=== PATIENT | male | born 1940 | race Caucasian/White ===

== ENCOUNTER 2020-02-29 12:22 | Inpatient (IN) ==
[2020-02-29 14:08] LABS: Basophils % 0.4 % (0.0-0.8); Eosinophils % 0.5 % (0.00-10.9); Hematocrit 35.5 VOL% (42.0-52.0); Hemoglobin 11.1 GM/DL (14.0-18.0); Immature Granulocytes % 0.4 %; Immature Granulocytes Absolute 0.03 #; Lymphocytes # 2.8 10*3/uL (1.4-4.0); Lymphocytes % 34.6 % (21.2-54.2); Mean Corpuscular HGB Conc 31.3 GM/DL (32-36); Mean Corpuscular Volume 90.8 FL (87-102); Mean Platelet Volume 10.2 FL (9.6-12.0); Monocytes % 10.2 % (1.7-12.7); Neutrophils % 53.9 % (38.7-73.9); Platelet Count 167 T/CUMM (130-400); Red Blood Count 3.91 MC/CUMM (3.8-5.5); Red Cell Distribution Width 16.3 % (9.3-17.3)
[2020-02-29] MEDS ORDERED: MORPHINE 4 MG/1 ML VIAL IV PRN (14:10)
[2020-02-29] MEDS ORDERED: SIMETHICONE CHEW 125 MG TABLET PO PRN (14:10)
[2020-02-29] MEDS ORDERED: hydrALAZINE 20 MG/1 ML VIAL IV PRN (14:10)
[2020-02-29] MEDS ORDERED: MAGNESIUM SULF RIDER 4 GM in PREMIX 1 EACH IV PRN (14:10)
[2020-02-29] MEDS ORDERED: MAGNESIUM SULF RIDER 2 GM in PREMIX 1 EACH IV PRN (14:10)
[2020-02-29] MEDS ORDERED: ALUMINUM/MAGNES/SIMETH MAX STR 30 ML UDCUP PO PRN (14:10)
[2020-02-29] MEDS ORDERED: BISACODYL 5 MG TABLET PO PRN (14:10)
[2020-02-29] MEDS ORDERED: LACTULOSE 20 GM/30 ML UDCUP PO PRN (14:10)
[2020-02-29] MEDS ORDERED: CALCIUM CARBONATE CHEW 500 MG TABLET PO PRN (14:10)
[2020-02-29] MEDS ORDERED: diphenhydrAMINE CAP 25 MG CAPSULE PO PRN (14:10)
[2020-02-29] MEDS ORDERED: POTASSIUM CHLORIDE 20 MEQ TABLET PO PRN (14:10)
[2020-02-29] MEDS ORDERED: ONDANSETRON 4 MG/2 ML VIAL IV PRN (14:10)
[2020-02-29 14:16] LABS: INR 3.4; Partial Thromboplastin Time 39.9 SECS (23.9-33.8)
[2020-02-29 14:18] LABS: Albumin 4.3 G/DL (3.4-5.0); Bilirubin,Total 0.5 MG/DL (0.2-1.0); Calcium 9.7 MG/DL (8.5-10.1); Osmolality,Calculated 284.5 MOS/KG (273-304); Total Protein 7.8 G/DL (6.4-8.3)
[2020-02-29] MEDS ORDERED: DEXTROSE 50% 25 GM/50 ML VIAL IV PRN (14:25)
[2020-02-29] MEDS ORDERED: GLUCAGON 1 MG VIAL IM PRN (14:25)
[2020-02-29] MEDS ORDERED: ENOXAPARIN 40 MG/0.4 ML SYRINGE SUBCUT SCH (15:30)
[2020-02-29 16:41] LABS: Troponin I < 0.015 NG/ML (0.00-0.045)
[2020-02-29] MEDS: INSULIN LISPRO 100 UNIT/ML SUBCUT SCH ×2 (17:33→21:33)
[2020-02-29 19:21] LABS: Troponin I < 0.015 NG/ML (0.00-0.045)
[2020-02-29] MEDS: LOSARTAN 50 MG TABLET PO SCH (21:33)
[2020-02-29] MEDS: gemfibroziL 600 MG TABLET PO SCH (21:45)
[2020-03-01 05:30] LABS: Basophils % 0.4 % (0.0-0.8); Eosinophils # 0.1 10*3/uL (0.0-0.87); Eosinophils % 1.2 % (0.00-10.9); Hematocrit 34.7 VOL% (42.0-52.0); Hemoglobin 10.8 GM/DL (14.0-18.0); Immature Granulocytes % 0.3 %; Immature Granulocytes Absolute 0.02 #; Lymphocytes # 2.6 10*3/uL (1.4-4.0); Lymphocytes % 37.4 % (21.2-54.2); Mean Corpuscular HGB Conc 31.1 GM/DL (32-36); Mean Corpuscular Volume 90.8 FL (87-102); Mean Platelet Volume 9.8 FL (9.6-12.0); Neutrophils % 50.7 % (38.7-73.9); Platelet Count 139 T/CUMM (130-400); Red Blood Count 3.82 MC/CUMM (3.8-5.5); Red Cell Distribution Width 16.4 % (9.3-17.3); White Blood Count 6.9 T/CUMM (4-12)
[2020-03-01 05:49] LABS: INR 3.5; PT Patient Result 35.3 SECS (9.8-11.9)
[2020-03-01 05:55] LABS: Calcium 9.1 MG/DL (8.5-10.1); Osmolality,Calculated 286.1 MOS/KG (273-304); Risk Ratio 5.78; Thyroid Stimulating Hormone 1.73 uIU/ml (0.358-3.74); VLDL CHOLESTEROL 35.6 MG/DL
[2020-03-01 05:57] LABS: Hypochromasia 1+
[2020-03-01 05:58] LABS: Microcytosis 1+; Ovalocytes Few; Spherocytes Slight
[2020-03-01 05:59] LABS: Anisocytosis 1+; Platelet Estimate Adequate; Polychromasia Slight
[2020-03-01] MEDS ORDERED: DIAZEPAM 5 MG TABLET PO ONE ×2 (06:28→12:00)
[2020-03-01] MEDS ORDERED: ceFAZolin 1,000 MG VIAL IRRIG ONE (06:28)
[2020-03-01] MEDS ORDERED: ceFAZolin 1,000 MG in SYRINGE 1 EACH IV ONE ×2 (06:28→12:00)
[2020-03-01] MEDS ORDERED: diphenhydrAMINE CAP 25 MG CAPSULE PO ONE ×2 (06:28→12:00)
[2020-03-01] MEDS ORDERED: SODIUM CHLORIDE 0.9% 1,000 ML IV SCH ×3 (06:30→14:00)
[2020-03-01] MEDS: INSULIN LISPRO 100 UNIT/ML SUBCUT SCH ×4 (08:32→20:40)
[2020-03-01] MEDS: PANTOPRAZOLE 40 MG TABLET PO SCH (08:45)
[2020-03-01] MEDS: gemfibroziL 600 MG TABLET PO SCH ×2 (08:45→20:27)
[2020-03-01] MEDS ORDERED: LIDOCAINE 1% 20 ML VIAL ONE (12:03)
[2020-03-01] MEDS ORDERED: HEPARIN/NACL 0.9% 2 UNITS/ML 0 ML IV ONE (12:03)
[2020-03-01] MEDS ORDERED: VERAPAMIL 5 MG/2 ML VIAL ONE (12:03)
[2020-03-01] MEDS ORDERED: NITROGLYCERIN DRIP 50 MG/250 ML BOTTLE IV ONE (12:03)
[2020-03-01] MEDS ORDERED: HEPARIN/NACL 0.9% 2 UNITS/ML 1,000 ML IV ONE (12:19)
[2020-03-01] MEDS ORDERED: fentaNYL 100 MCG/2 ML VIAL ONE (12:36)
[2020-03-01] MEDS ORDERED: MIDAZOLAM 2 MG/2 ML VIAL ONE (12:36)
[2020-03-01] MEDS ORDERED: ZALEPLON 5 MG CAPSULE PO PRN (13:37)
[2020-03-01] MEDS ORDERED: NITROGLYCERIN SL 0.4 MG TABLET SL PRN (13:37)
[2020-03-01] MEDS: ISOSORBIDE MONONITRATE 30 MG TABLET PO SCH (16:06)
[2020-03-01] MEDS: LOSARTAN 50 MG TABLET PO SCH (21:59)
[2020-03-02 05:40] LABS: Basophils % 0.3 % (0.0-0.8); Eosinophils # 0.1 10*3/uL (0.0-0.87); Eosinophils % 1.2 % (0.00-10.9); Hematocrit 34.6 VOL% (42.0-52.0); Hemoglobin 10.7 GM/DL (14.0-18.0); Immature Granulocytes % 0.1 %; Immature Granulocytes Absolute 0.01 #; Lymphocytes # 2.2 10*3/uL (1.4-4.0); Lymphocytes % 29.2 % (21.2-54.2); Mean Corpuscular HGB Conc 30.9 GM/DL (32-36); Mean Corpuscular Volume 91.1 FL (87-102); Mean Platelet Volume 10.4 FL (9.6-12.0); Monocytes % 11.5 % (1.7-12.7); Neutrophils % 57.7 % (38.7-73.9); Platelet Count 147 T/CUMM (130-400); Red Cell Distribution Width 16.5 % (9.3-17.3); White Blood Count 7.6 T/CUMM (4-12)
[2020-03-02 05:57] LABS: INR 2.5
[2020-03-02 05:58] LABS: PT Patient Result 25.7 SECS (9.8-11.9)
[2020-03-02 05:59] LABS: Osmolality,Calculated 286.1 MOS/KG (273-304)
[2020-03-02] MEDS: ASPIRIN EC 81 MG TABLET PO SCH (08:45)
[2020-03-02] MEDS: ISOSORBIDE MONONITRATE 30 MG TABLET PO SCH ×2 (08:45→08:46)
[2020-03-02] MEDS: gemfibroziL 600 MG TABLET PO SCH ×2 (08:45→21:45)
[2020-03-02] MEDS: INSULIN LISPRO 100 UNIT/ML SUBCUT SCH ×4 (08:46→21:38)
[2020-03-02] MEDS: PANTOPRAZOLE 40 MG TABLET PO SCH (08:46)
[2020-03-02] MEDS: ASCORBIC ACID 500 MG TABLET PO SCH ×2 (10:08→21:45)
[2020-03-02] MEDS ORDERED: DEXTROSE 50% 25 GM/50 ML VIAL IV PRN (13:29)
[2020-03-02] MEDS ORDERED: GLUCAGON 1 MG VIAL IM PRN (13:29)
[2020-03-02] MEDS: ACETAMINOPHEN 325 MG TABLET PO PRN ×2 (17:11→21:46)
[2020-03-02] MEDS: LOSARTAN 50 MG TABLET PO SCH (21:45)
[2020-03-03 05:38] LABS: Basophils % 0.4 % (0.0-0.8); Eosinophils # 0.1 10*3/uL (0.0-0.87); Eosinophils % 1.5 % (0.00-10.9); Hematocrit 32.9 VOL% (42.0-52.0); Hemoglobin 10.1 GM/DL (14.0-18.0); Immature Granulocytes % 0.3 %; Immature Granulocytes Absolute 0.02 #; Lymphocytes # 2.7 10*3/uL (1.4-4.0); Lymphocytes % 37.9 % (21.2-54.2); Mean Corpuscular HGB Conc 30.7 GM/DL (32-36); Mean Corpuscular Volume 91.4 FL (87-102); Mean Platelet Volume 10.6 FL (9.6-12.0); Monocytes % 10.3 % (1.7-12.7); Neutrophils % 49.6 % (38.7-73.9); Platelet Count 132 T/CUMM (130-400); Red Cell Distribution Width 16.5 % (9.3-17.3); White Blood Count 7.2 T/CUMM (4-12)
[2020-03-03 05:52] LABS: INR 1.7
[2020-03-03 06:07] LABS: Albumin 3.7 G/DL (3.4-5.0); Bilirubin,Total 1.7 MG/DL (0.2-1.0); Calcium 9.2 MG/DL (8.5-10.1); Osmolality,Calculated 287.1 MOS/KG (273-304); Total Protein 6.9 G/DL (6.4-8.3)
[2020-03-03 06:08] LABS: Calcium 9.1 MG/DL (8.5-10.1); Osmolality,Calculated 288.1 MOS/KG (273-304)
[2020-03-03] MEDS: INSULIN LISPRO 100 UNIT/ML SUBCUT SCH ×4 (06:56→20:03)
[2020-03-03] MEDS: ASCORBIC ACID 500 MG TABLET PO SCH ×2 (09:18→20:36)
[2020-03-03] MEDS: ASPIRIN EC 81 MG TABLET PO SCH (09:18)
[2020-03-03] MEDS: gemfibroziL 600 MG TABLET PO SCH ×2 (09:18→20:36)
[2020-03-03] MEDS: ISOSORBIDE MONONITRATE 30 MG TABLET PO SCH ×2 (09:18→10:37)
[2020-03-03] MEDS: PANTOPRAZOLE 40 MG TABLET PO SCH (09:18)
[2020-03-03 09:23] LABS: ABG Base Excess -5.6 MMOL/L (-2.5-2.5); ABG HCO3 19.8 MMOL/L (20-26); ABG Oxygen Saturation 93.9 % (95-100); ABG PCO2 28.2 MM HG (35-48); ABG PH 7.412 (7.35-7.45); ABG PO2 70.8 MM HG (80-95); ABG TCO2 16.2 MMOL/L (23-27); Allen Test Positive; Pt O2 Delivery Device Room Air
[2020-03-03] MEDS ORDERED: SODIUM CHLORIDE 0.9% 1,000 ML IV SCH (14:00)
[2020-03-03] MEDS: CHLORHEXIDINE 4% SOLN 118 ML BOTTLE TOP SCH ×2 (15:00→20:37)
[2020-03-03] MEDS: ACETAMINOPHEN 325 MG TABLET PO PRN (20:35)
[2020-03-03] MEDS: LOSARTAN 50 MG TABLET PO SCH (20:36)
[2020-03-03] MEDS: CHLORHEXIDINE 0.12% ORAL RINSE 60 ML BOTTLE SWISH/SPIT SCH (20:36)
[2020-03-04] MEDS ORDERED: PAPAVERINE 60 MG/2 ML VIAL ONE (04:20)
[2020-03-04] MEDS ORDERED: VANCOMYCIN 500 MG VIAL ONE (04:21)
[2020-03-04] MEDS ORDERED: VANCOMYCIN 1,000 MG VIAL ONE (04:21)
[2020-03-04] MEDS ORDERED: CEFUROXIME INJ 1,500 MG in SYRINGE 1 EACH IV ONE (05:00)
[2020-03-04] MEDS ORDERED: DIAZEPAM 5 MG TABLET PO ONE (06:00)
[2020-03-04] MEDS ORDERED: FAMOTIDINE 20 MG TABLET PO ONE (06:00)
[2020-03-04] MEDS ORDERED: MINERAL OIL/PETROLATUM OPH OINT 3.5 GM TUBE ONE (06:14)
[2020-03-04] MEDS ORDERED: MIDAZOLAM 10 MG/2 ML VIAL ONE ×2 (06:14)
[2020-03-04] MEDS ORDERED: diphenhydrAMINE 50 MG/1 ML VIAL ONE (06:14)
[2020-03-04] MEDS ORDERED: SUFentanil 250 MCG/5 ML AMP ONE (06:14)
[2020-03-04] MEDS ORDERED: FAMOTIDINE 20 MG/2 ML VIAL IV ONE (06:15)
[2020-03-04 06:37] LABS: Basophils % 0.4 % (0.0-0.8); Eosinophils # 0.1 10*3/uL (0.0-0.87); Eosinophils % 1.1 % (0.00-10.9); Hematocrit 31.8 VOL% (42.0-52.0); Hemoglobin 9.9 GM/DL (14.0-18.0); Immature Granulocytes % 0.4 %; Immature Granulocytes Absolute 0.03 #; Lymphocytes # 2.6 10*3/uL (1.4-4.0); Lymphocytes % 32.4 % (21.2-54.2); Mean Corpuscular HGB Conc 31.1 GM/DL (32-36); Mean Corpuscular Volume 91.9 FL (87-102); Mean Platelet Volume 10.2 FL (9.6-12.0); Monocytes % 11.1 % (1.7-12.7); NRBC # 0.02 10*3/uL; Neutrophils % 54.6 % (38.7-73.9); Platelet Count 132 T/CUMM (130-400); Red Blood Count 3.46 MC/CUMM (3.8-5.5); Red Cell Distribution Width 16.6 % (9.3-17.3); White Blood Count 8.1 T/CUMM (4-12)
[2020-03-04 06:43] LABS: INR 1.5; PT Patient Result 15.8 SECS (9.8-11.9)
[2020-03-04 07:02] LABS: Calcium 9.1 MG/DL (8.5-10.1); Osmolality,Calculated 291.1 MOS/KG (273-304)
[2020-03-04 07:26] LABS: Anisocytosis 1+; Band Neutrophils 3 % (0-10); Eosinophils 1 % (0-10); Lymphocytes 33 % (20-55); Macrocytosis 1+; Platelet Estimate Decreased; Polychromasia 2+; Segmented Neutrophils 50 % (50-85); Total Cells Counted 100
[2020-03-04 07:27] LABS: Ovalocytes Few
[2020-03-04] MEDS ORDERED: PHENYLEPHRINE DRIP 40 MG/250 ML PREMIX IV ONE (07:28)
[2020-03-04 07:57] LABS: ABG Base Excess -6.9 MMOL/L (-2.5-2.5); ABG HCO3 18.8 MMOL/L (20-26); ABG PH 7.336 (7.35-7.45); ABG TCO2 16.7 MMOL/L (23-27); Glucose Heart Surgery 122 MG/DL (74-106); Hemoglobin Heart Surgery 9.4 G/DL (14.0-18.0); Ionized Calcium Arterial 1.27 MMOL/L (1.21-1.46); PH Patient Temp Arterial 7.336; Patient Temperature 37 CELCIUS; Potassium Heart/CVR 3.9 MMOL/L (3.5-5.1); Sodium Heart/CVR 143 MMOL/L (135-145)
[2020-03-04 08:09] LABS: Apearance,Urine CLEAR (Clear); Bacteria,Urine Occasional /HPF (Few); Bilirubin,Urine Negative (Negative); Blood, Urine Negative (Negative); Glucose,Urine (UA) Negative (Negative); Hyaline Casts,Urine 5 /LPF (0-3); Ketones,Urine Negative (Negative); Nitrite,Urine Negative (Negative); Protein,Urine 30 MG/DL; RBC,Urine 2 /HPF (0-4); Squamous Epithelial Cell,Urine Occasional /HPF (0-10); Urine Color Yellow (Yellow); Urine Urobilinogen < 2.0 EU/DL (0.2-1.0); WBC,Urine 2 /HPF (0-6)
[2020-03-04 09:31] LABS: Hematocrit Heart Surgery 19.9 PERCENT (42-52); PCO2 Patient Temp Venous 34.4 MM HG; PH Patient Temp Venous 7.34; PO2 Patient Temp Venous 37.9 MM HG; Potassium Heart/CVR 4.5 MMOL/L (3.5-5.1); VBG Base Excess -6.4 MEQ/L (0-4); VBG HCO3 18.9 MEQ/L (24-28); VBG Oxygen Saturation 73.6 %; VBG PCO2 39.8 MMHG (41-51); VBG PH 7.299; VBG PO2 46.5 MMHG (17-40)
[2020-03-04 09:34] LABS: Hemoglobin Heart Surgery 6.3 G/DL (14.0-18.0)
[2020-03-04 10:01] LABS: Hematocrit Heart Surgery 19.5 PERCENT (42-52); PCO2 Patient Temp Venous 34.3 MM HG; PH Patient Temp Venous 7.393; PO2 Patient Temp Venous 34.6 MM HG; Potassium Heart/CVR 4.7 MMOL/L (3.5-5.1); VBG Base Excess -3.4 MEQ/L (0-4); VBG HCO3 21.3 MEQ/L (24-28); VBG Oxygen Saturation 71.1 %; VBG PCO2 39.6 MMHG (41-51); VBG PH 7.351; VBG PO2 42.5 MMHG (17-40)
[2020-03-04 10:02] LABS: Hemoglobin Heart Surgery 6.2 G/DL (14.0-18.0)
[2020-03-04] MEDS ORDERED: THROMBIN TOPICAL (RECOMBINANT) 5,000 UNIT VIAL TOP ONE (10:35)
[2020-03-04 10:36] LABS: ABG Base Excess -3.7 MMOL/L (-2.5-2.5); ABG HCO3 21.3 MMOL/L (20-26); ABG PCO2 40.4 MM HG (35-48); ABG PH 7.339 (7.35-7.45); ABG TCO2 20.4 MMOL/L (23-27); Glucose Heart Surgery 236 MG/DL (74-106); Hematocrit Heart Surgery 25.3 PERCENT (42-52); Hemoglobin Heart Surgery 8.1 G/DL (14.0-18.0); Ionized Calcium Arterial 1.23 MMOL/L (1.21-1.46); PCO2 Patient Temp Arterial 40.4 MMHG; PH Patient Temp Arterial 7.339; Patient Temperature 37 CELCIUS; Potassium Heart/CVR 4.2 MMOL/L (3.5-5.1); Sodium Heart/CVR 139 MMOL/L (135-145)
[2020-03-04] MEDS ORDERED: ALBUMIN 25% 25 GM/100 ML VIAL IV ONE (10:42)
[2020-03-04] MEDS ORDERED: SODIUM BICARBONATE 50 MEQ/50 ML VIAL IV ONE (10:43)
[2020-03-04] MEDS ORDERED: DEXTROSE 5% KCL 20 MEQ 20 MEQ/1,000 ML BAG IV ONE (10:43)
[2020-03-04] MEDS ORDERED: LIDOCAINE 2% 5 ML VIAL ONE ×2 (10:43→11:39)
[2020-03-04] MEDS ORDERED: PROTAMINE SULFATE 250 MG/25 ML VIAL IV ONE (10:43)
[2020-03-04] MEDS ORDERED: MANNITOL 100 GM/500 ML BAG IV ONE (10:43)
[2020-03-04] MEDS ORDERED: MAGNESIUM SULFATE 5 GM/10 ML VIAL IV ONE (10:43)
[2020-03-04] MEDS ORDERED: HEPARIN 10,000 UNIT/10 ML VIAL ONE (10:44)
[2020-03-04] MEDS ORDERED: methylPREDNISolone SOD SUC 1,000 MG/8 ML VIAL ONE (10:44)
[2020-03-04] MEDS ORDERED: FUROSEMIDE 20 MG/2 ML VIAL ONE (10:44)
[2020-03-04] MEDS ORDERED: ONDANSETRON 4 MG/2 ML VIAL IV PRN (11:33)
[2020-03-04] MEDS ORDERED: VECURONIUM 10 MG VIAL IV PRN ×2 (11:33)
[2020-03-04] MEDS ORDERED: DEXTROSE 50% 25 GM/50 ML VIAL IV PRN ×2 (11:33)
[2020-03-04] MEDS ORDERED: MIDAZOLAM 10 MG/2 ML VIAL IV PRN (11:33)
[2020-03-04] MEDS ORDERED: CALCIUM CHLORIDE 1,000 MG/10 ML SYRINGE IV PRN (11:33)
[2020-03-04] MEDS ORDERED: MORPHINE 10 MG/1 ML VIAL IV PRN (11:33)
[2020-03-04] MEDS ORDERED: PHENYLEPHRINE DRIP 40 MG/250 ML PREMIX IV PRN (11:33)
[2020-03-04] MEDS ORDERED: ACETAMINOPHEN 650 MG SUPP RECTAL PRN (11:33)
[2020-03-04] MEDS ORDERED: INSULIN REGULAR DRIP 100 ML IV SCH (11:33)
[2020-03-04] MEDS ORDERED: SODIUM CHLORIDE 0.45% 1,000 ML IV SCH ×2 (11:33)
[2020-03-04] MEDS ORDERED: CHLORHEXIDINE 4% SOLN 118 ML BOTTLE TOP PRN (11:33)
[2020-03-04] MEDS ORDERED: MORPHINE 4 MG/1 ML VIAL IV PRN (11:33)
[2020-03-04] MEDS ORDERED: MIDAZOLAM 2 MG/2 ML VIAL IV PRN (11:33)
[2020-03-04] MEDS ORDERED: INSULIN REGULAR 100 UNIT/ML IV PRN (11:33)
[2020-03-04] MEDS ORDERED: MAGNESIUM SULF RIDER 2 GM in PREMIX 1 EACH IV PRN (11:33)
[2020-03-04] MEDS ORDERED: LACTATED RINGERS 250 ML IV PRN (11:33)
[2020-03-04] MEDS ORDERED: INSULIN REGULAR 100 UNIT/ML IV ONE (11:33)
[2020-03-04] MEDS ORDERED: NITROPRUSSIDE 100 MG in DEXTROSE 5% 250 ML IV PRN (11:33)
[2020-03-04] MEDS ORDERED: MAGNESIUM SULF RIDER 4 GM in PREMIX 1 EACH IV PRN (11:33)
[2020-03-04] MEDS ORDERED: ALBUMIN 5% 12.5 GM in PREMIX 1 EACH IV PRN (11:33)
[2020-03-04] MEDS ORDERED: PHENYLEPHRINE DRIP 20 MG/250 ML PREMIX IV ONE (11:39)
[2020-03-04] MEDS ORDERED: HEPARIN/NACL 0.9% 2 UNITS/ML 500 ML IV ONE (11:39)
[2020-03-04] MEDS ORDERED: ETOMIDATE 40 MG/20 ML VIAL IV ONE (11:40)
[2020-03-04] MEDS ORDERED: ePHEDrine 50 MG/ML VIAL ONE (11:40)
[2020-03-04] MEDS ORDERED: SEVOFLURANE 1 UNIT/15 MINUTE INH ONE (11:40)
[2020-03-04] MEDS ORDERED: NITROGLYCERIN DRIP 50 MG/250 ML BOTTLE IV ONE (11:41)
[2020-03-04] MEDS ORDERED: AMINOCAPROIC ACID 5,000 MG/20 ML VIAL ONE (11:41)
[2020-03-04] MEDS ORDERED: SODIUM CHLORIDE 0.9% 250 ML IV ONE (11:41)
[2020-03-04] MEDS ORDERED: SODIUM CHLORIDE 0.9% 2,000 ML IV ONE (11:41)
[2020-03-04] MEDS ORDERED: LACTATED RINGERS 1,000 ML IV ONE (11:41)
[2020-03-04] MEDS ORDERED: SODIUM CHLORIDE 0.9% 100 ML IV ONE (11:41)
[2020-03-04 11:57] LABS: ABG Base Excess -1.6 MMOL/L (-2.5-2.5); ABG Oxygen Saturation 97.9 % (95-100); ABG PCO2 39.7 MM HG (35-48); ABG PH 7.377 (7.35-7.45); ABG PO2 98.3 MM HG (80-95); ABG TCO2 21.1 MMOL/L (23-27); Glucose Heart Surgery 210 MG/DL (74-106); Hematocrit Heart Surgery 32.9 PERCENT (42-52); Hemoglobin Heart Surgery 10.7 G/DL (14.0-18.0); Potassium Heart/CVR 3.6 MMOL/L (3.5-5.1)
[2020-03-04 12:01] LABS: Basophils % 0.3 % (0.0-0.8); Eosinophils % 0.3 % (0.00-10.9); Hematocrit 30.4 VOL% (42.0-52.0); Hemoglobin 9.8 GM/DL (14.0-18.0); Immature Granulocytes % 0.8 %; Immature Granulocytes Absolute 0.06 #; Lymphocytes # 1.2 10*3/uL (1.4-4.0); Lymphocytes % 16.6 % (21.2-54.2); Mean Corpuscular HGB Conc 32.2 GM/DL (32-36); Mean Corpuscular Volume 89.1 FL (87-102); Mean Platelet Volume 10.3 FL (9.6-12.0); Monocytes % 7.3 % (1.7-12.7); Neutrophils % 74.7 % (38.7-73.9); Platelet Count 102 T/CUMM (130-400); Red Blood Count 3.41 MC/CUMM (3.8-5.5); White Blood Count 7.4 T/CUMM (4-12)
[2020-03-04] MEDS: POTASSIUM CHLORIDE RIDER 20 MEQ in PREMIX 1 EACH IV PRN ×3 (12:06→21:15)
[2020-03-04 12:10] LABS: INR 1.6; PT Patient Result 16.3 SECS (9.8-11.9); Partial Thromboplastin Time 32.3 SECS (23.9-33.8)
[2020-03-04] MEDS: LACTATED RINGERS 1,000 ML IV PRN ×3 (12:30→16:02)
[2020-03-04 12:41] LABS: Albumin 3.4 G/DL (3.4-5.0); Bilirubin,Total 1.5 MG/DL (0.2-1.0); Calcium 8.3 MG/DL (8.5-10.1); Total Protein 5.7 G/DL (6.4-8.3)
[2020-03-04] MEDS ORDERED: NITROPRUSSIDE 50 MG/2 ML VIAL ONE (12:41)
[2020-03-04 12:50] LABS: Anisocytosis 1+; Platelet Estimate Adequate; Polychromasia Slight
[2020-03-04 12:51] LABS: Poikilocytosis Slight
[2020-03-04 14:08] LABS: ABG Base Excess -1.2 MMOL/L (-2.5-2.5); ABG HCO3 23.4 MMOL/L (20-26); ABG Oxygen Saturation 99.3 % (95-100); ABG PCO2 37.1 MM HG (35-48); ABG PH 7.404 (7.35-7.45); ABG TCO2 21.2 MMOL/L (23-27); Glucose Heart Surgery 205 MG/DL (74-106); Hematocrit Heart Surgery 28.9 PERCENT (42-52); Hemoglobin Heart Surgery 9.3 G/DL (14.0-18.0); Potassium Heart/CVR 3.9 MMOL/L (3.5-5.1)
[2020-03-04] MEDS: POTASSIUM CHLORIDE RIDER 10 MEQ in PREMIX 1 EACH IV PRN (14:51)
[2020-03-04 16:04] LABS: CKMB % 4.4 %
[2020-03-04 16:08] LABS: Troponin I 1.88 NG/ML (0.00-0.045)
[2020-03-04 16:09] LABS: ABG Base Excess -1.6 MMOL/L (-2.5-2.5); ABG HCO3 23.1 MMOL/L (20-26); ABG PH 7.391 (7.35-7.45); ABG TCO2 20.9 MMOL/L (23-27); Glucose Heart Surgery 187 MG/DL (74-106); Hematocrit Heart Surgery 31.5 PERCENT (42-52); Hemoglobin Heart Surgery 10.2 G/DL (14.0-18.0)
[2020-03-04] MEDS: CEFUROXIME INJ 1,500 MG in SYRINGE 1 EACH IV SCH (18:22)
[2020-03-04] MEDS: INSULIN LISPRO 100 UNIT/ML SUBCUT SCH (18:55)
[2020-03-04] MEDS: CHLORHEXIDINE 0.12% ORAL RINSE 60 ML BOTTLE SWISH/SPIT SCH ×2 (18:56→21:18)
[2020-03-04] MEDS: gemfibroziL 600 MG TABLET PO SCH (18:56)
[2020-03-04] MEDS: ISOSORBIDE MONONITRATE 30 MG TABLET PO SCH (18:56)
[2020-03-04] MEDS: ASPIRIN EC 81 MG TABLET PO SCH (18:56)
[2020-03-04] MEDS: CHLORHEXIDINE 4% SOLN 118 ML BOTTLE TOP SCH (18:56)
[2020-03-04] MEDS: PANTOPRAZOLE 40 MG TABLET PO SCH (18:56)
[2020-03-04] MEDS: ASCORBIC ACID 500 MG TABLET PO SCH (18:57)
[2020-03-04 19:20] LABS: ABG Base Excess -1.3 MMOL/L (-2.5-2.5); ABG HCO3 23.3 MMOL/L (20-26); ABG Oxygen Saturation 95.6 % (95-100); ABG PCO2 37.3 MM HG (35-48); ABG PH 7.401 (7.35-7.45); ABG PO2 77.4 MM HG (80-95); Glucose Heart Surgery 128 MG/DL (74-106); Hematocrit Heart Surgery 31.3 PERCENT (42-52); Hemoglobin Heart Surgery 10.1 G/DL (14.0-18.0); Potassium Heart/CVR 3.8 MMOL/L (3.5-5.1)
[2020-03-04 19:53] LABS: CKMB % 4.1 %
[2020-03-04 20:11] LABS: Troponin I 3.16 NG/ML (0.00-0.045)
[2020-03-04 21:08] LABS: ABG Base Excess -0.9 MMOL/L (-2.5-2.5); ABG HCO3 23.7 MMOL/L (20-26); ABG Oxygen Saturation 95.8 % (95-100); ABG PH 7.418 (7.35-7.45); ABG PO2 77.6 MM HG (80-95); ABG TCO2 21.1 MMOL/L (23-27); Glucose Heart Surgery 117 MG/DL (74-106); Hematocrit Heart Surgery 31.5 PERCENT (42-52); Hemoglobin Heart Surgery 10.2 G/DL (14.0-18.0); Potassium Heart/CVR 3.8 MMOL/L (3.5-5.1)
[2020-03-04] MEDS ORDERED: FUROSEMIDE 40 MG/4 ML VIAL IV ONE (22:03)
[2020-03-04 23:19] LABS: ABG Base Excess -1.2 MMOL/L (-2.5-2.5); ABG HCO3 23.3 MMOL/L (20-26); ABG Oxygen Saturation 92.6 % (95-100); ABG PH 7.412 (7.35-7.45); ABG PO2 65.6 MM HG (80-95); ABG TCO2 20.9 MMOL/L (23-27); Glucose Heart Surgery 145 MG/DL (74-106); Hematocrit Heart Surgery 31.1 PERCENT (42-52); Hemoglobin Heart Surgery 10.1 G/DL (14.0-18.0); Potassium Heart/CVR 3.9 MMOL/L (3.5-5.1)
[2020-03-05 00:23] LABS: ABG Base Excess -2.1 MMOL/L (-2.5-2.5); ABG HCO3 21.6 MMOL/L (20-26); ABG Oxygen Saturation 95.7 % (95-100); ABG PH 7.433 (7.35-7.45); ABG PO2 84.2 MM HG (80-95); ABG TCO2 22.6 MMOL/L (23-27); Glucose Heart Surgery 134 MG/DL (74-106); Hemoglobin Heart Surgery 10.9 G/DL (14.0-18.0); Potassium Heart/CVR 3.8 MMOL/L (3.5-5.1)
[2020-03-05] MEDS: POTASSIUM CHLORIDE RIDER 20 MEQ in PREMIX 1 EACH IV PRN (00:38)
[2020-03-05] MEDS: POTASSIUM CHLORIDE RIDER 10 MEQ in PREMIX 1 EACH IV PRN (01:07)
[2020-03-05 02:36] LABS: ABG Base Excess -1.4 MMOL/L (-2.5-2.5); ABG HCO3 23.2 MMOL/L (20-26); ABG Oxygen Saturation 97.4 % (95-100); ABG PCO2 35.4 MM HG (35-48); ABG PH 7.415 (7.35-7.45); ABG PO2 90.4 MM HG (80-95); ABG TCO2 20.6 MMOL/L (23-27); Glucose Heart Surgery 144 MG/DL (74-106); Hematocrit Heart Surgery 31.3 PERCENT (42-52); Hemoglobin Heart Surgery 10.1 G/DL (14.0-18.0); Potassium Heart/CVR 4.3 MMOL/L (3.5-5.1)
[2020-03-05 03:44] LABS: ABG Base Excess -1.5 MMOL/L (-2.5-2.5); ABG HCO3 23.1 MMOL/L (20-26); ABG Oxygen Saturation 95.3 % (95-100); ABG PCO2 35.1 MM HG (35-48); ABG PH 7.416 (7.35-7.45); ABG PO2 75.8 MM HG (80-95); ABG TCO2 20.6 MMOL/L (23-27); Glucose Heart Surgery 136 MG/DL (74-106); Hemoglobin Heart Surgery 9.7 G/DL (14.0-18.0); Potassium Heart/CVR 4.1 MMOL/L (3.5-5.1)
[2020-03-05 03:49] LABS: Basophils % 0.1 % (0.0-0.8); Hematocrit 30.9 VOL% (42.0-52.0); Hemoglobin 9.9 GM/DL (14.0-18.0); Immature Granulocytes % 0.4 %; Immature Granulocytes Absolute 0.05 #; Lymphocytes # 0.9 10*3/uL (1.4-4.0); Lymphocytes % 7.3 % (21.2-54.2); Mean Corpuscular Volume 89.6 FL (87-102); Mean Platelet Volume 10.6 FL (9.6-12.0); Monocytes % 5.3 % (1.7-12.7); NRBC # 0.02 10*3/uL; Neutrophils % 86.9 % (38.7-73.9); Platelet Count 105 T/CUMM (130-400); Red Blood Count 3.45 MC/CUMM (3.8-5.5); Red Cell Distribution Width 16.1 % (9.3-17.3); White Blood Count 12.3 T/CUMM (4-12)
[2020-03-05 04:08] LABS: Albumin 3.6 G/DL (3.4-5.0); Bilirubin,Direct 0.66 MG/DL (0.0-0.20); Bilirubin,Total 1.8 MG/DL (0.2-1.0); Calcium 8.6 MG/DL (8.5-10.1); Osmolality,Calculated 292.8 MOS/KG (273-304); Total Protein 6.6 G/DL (6.4-8.3)
[2020-03-05 04:09] LABS: CKMB % 3.1 %
[2020-03-05 04:11] LABS: Troponin I 2.67 NG/ML (0.00-0.045)
[2020-03-05 04:21] LABS: ABG Base Excess -1.1 MMOL/L (-2.5-2.5); ABG HCO3 23.5 MMOL/L (20-26); ABG Oxygen Saturation 95.3 % (95-100); ABG PCO2 35.7 MM HG (35-48); ABG PH 7.417 (7.35-7.45); ABG PO2 75.9 MM HG (80-95); Glucose Heart Surgery 137 MG/DL (74-106); Hematocrit Heart Surgery 30.6 PERCENT (42-52); Hemoglobin Heart Surgery 9.9 G/DL (14.0-18.0); Potassium Heart/CVR 4.1 MMOL/L (3.5-5.1)
[2020-03-05 05:30] LABS: ABG Base Excess -1.1 MMOL/L (-2.5-2.5); ABG HCO3 23.5 MMOL/L (20-26); ABG Oxygen Saturation 95.1 % (95-100); ABG PCO2 35.6 MM HG (35-48); ABG PH 7.418 (7.35-7.45); Glucose Heart Surgery 134 MG/DL (74-106); Hematocrit Heart Surgery 30.5 PERCENT (42-52); Hemoglobin Heart Surgery 9.9 G/DL (14.0-18.0); Potassium Heart/CVR 4.1 MMOL/L (3.5-5.1)
[2020-03-05] MEDS: CEFUROXIME INJ 1,500 MG in SYRINGE 1 EACH IV SCH (06:38)
[2020-03-05] MEDS ORDERED: FLUTICASONE 50 MCG NASAL SPRAY 16 GM BOTTLE BOTH NARES PRN (09:00)
[2020-03-05] MEDS ORDERED: MAGNESIUM HYDROXIDE SUSP 30 ML UDCUP PO PRN (09:30)
[2020-03-05] MEDS ORDERED: ONDANSETRON 4 MG/2 ML VIAL IV PRN (09:30)
[2020-03-05] MEDS ORDERED: oxyCODONE/ACETAMINOPHEN 5-325 MG TABLET PO PRN (09:30)
[2020-03-05] MEDS ORDERED: MAGNESIUM SULF RIDER 4 GM in PREMIX 1 EACH IV PRN (09:30)
[2020-03-05] MEDS ORDERED: ALUMINUM/MAGNES/SIMETH MAX STR 30 ML UDCUP PO PRN (09:30)
[2020-03-05] MEDS ORDERED: ZALEPLON 5 MG CAPSULE PO PRN (09:30)
[2020-03-05] MEDS ORDERED: GLUCAGON 1 MG VIAL IM PRN ×2 (09:30)
[2020-03-05] MEDS ORDERED: SODIUM CHLOR 0.45% KCL 20 MEQ 20 MEQ/1,000 ML BAG IV SCH (09:30)
[2020-03-05] MEDS ORDERED: MAGNESIUM SULF RIDER 2 GM in PREMIX 1 EACH IV PRN (09:30)
[2020-03-05] MEDS ORDERED: ACETAMINOPHEN 325 MG TABLET PO PRN (09:30)
[2020-03-05] MEDS ORDERED: DEXTROSE 50% 25 GM/50 ML VIAL IV PRN ×2 (09:30)
[2020-03-05] MEDS: CHOLECALCIFEROL 1,000 UNIT TABLET PO SCH (09:34)
[2020-03-05] MEDS: SERTRALINE 50 MG TABLET PO SCH (09:35)
[2020-03-05] MEDS: GLIMEPIRIDE 2 MG TABLET PO SCH (09:35)
[2020-03-05] MEDS: MEMANTINE 10 MG TABLET PO SCH ×2 (09:35→20:07)
[2020-03-05] MEDS: CYANOCOBALAMIN 500 MCG TABLET PO SCH (09:36)
[2020-03-05] MEDS: PANTOPRAZOLE 40 MG TABLET PO SCH ×2 (09:36→20:07)
[2020-03-05] MEDS: CHLORHEXIDINE 0.12% ORAL RINSE 60 ML BOTTLE SWISH/SPIT SCH ×2 (09:40→20:07)
[2020-03-05] MEDS: INSULIN REGULAR 100 UNIT/ML SUBCUT SCH ×3 (11:53→21:10)
[2020-03-05] MEDS ORDERED: WARFARIN 2.5 MG TABLET PO SCH (18:00)
[2020-03-05] MEDS ORDERED: CEFUROXIME INJ 1,500 MG in SYRINGE 1 EACH IV ONE (19:15)
[2020-03-05] MEDS: MORPHINE 4 MG/1 ML VIAL IV PRN ×3 (19:30→22:17)
[2020-03-05] MEDS ORDERED: SIMVASTATIN 20 MG TABLET ONE (19:38)
[2020-03-05] MEDS: SIMVASTATIN 20 MG TABLET PO SCH (20:07)
[2020-03-06] MEDS: MORPHINE 4 MG/1 ML VIAL IV PRN ×5 (00:01→22:30)
[2020-03-06 04:59] LABS: Basophils % 0.1 % (0.0-0.8); Hematocrit 29.6 VOL% (42.0-52.0); Hemoglobin 9.4 GM/DL (14.0-18.0); Immature Granulocytes % 0.6 %; Immature Granulocytes Absolute 0.08 #; Lymphocytes % 13.9 % (21.2-54.2); Mean Corpuscular HGB Conc 31.8 GM/DL (32-36); Mean Corpuscular Volume 90.2 FL (87-102); Mean Platelet Volume 10.9 FL (9.6-12.0); Monocytes % 9.1 % (1.7-12.7); NRBC # 0.05 10*3/uL; Neutrophils % 76.3 % (38.7-73.9); Platelet Count 103 T/CUMM (130-400); Red Blood Count 3.28 MC/CUMM (3.8-5.5); Red Cell Distribution Width 16.9 % (9.3-17.3); White Blood Count 14.5 T/CUMM (4-12)
[2020-03-06 05:06] LABS: INR 1.3; PT Patient Result 14.2 SECS (9.8-11.9)
[2020-03-06 05:20] LABS: Albumin 3.3 G/DL (3.4-5.0); Bilirubin,Direct 0.5 MG/DL (0.0-0.20); Bilirubin,Total 1.5 MG/DL (0.2-1.0); CKMB % 1.2 %; Calcium 8.7 MG/DL (8.5-10.1); Osmolality,Calculated 289.4 MOS/KG (273-304); Total Protein 6.2 G/DL (6.4-8.3)
[2020-03-06 05:59] LABS: Troponin I 1.54 NG/ML (0.00-0.045)
[2020-03-06] MEDS ORDERED: FUROSEMIDE 40 MG/4 ML VIAL IV ONE (06:00)
[2020-03-06] MEDS: FERROUS SULFATE 325 MG TABLET PO SCH (08:39)
[2020-03-06] MEDS: CYANOCOBALAMIN 500 MCG TABLET PO SCH (08:39)
[2020-03-06] MEDS: DOCUSATE SODIUM 100 MG CAPSULE PO SCH (08:39)
[2020-03-06] MEDS: SERTRALINE 50 MG TABLET PO SCH (08:39)
[2020-03-06] MEDS: GLIMEPIRIDE 2 MG TABLET PO SCH (08:39)
[2020-03-06] MEDS: ASPIRIN EC 325 MG TABLET PO SCH (08:40)
[2020-03-06] MEDS: CHOLECALCIFEROL 1,000 UNIT TABLET PO SCH (08:40)
[2020-03-06] MEDS: CHLORHEXIDINE 0.12% ORAL RINSE 60 ML BOTTLE SWISH/SPIT SCH ×2 (08:40→21:23)
[2020-03-06] MEDS: PANTOPRAZOLE 40 MG TABLET PO SCH ×2 (08:40→21:17)
[2020-03-06] MEDS: MEMANTINE 10 MG TABLET PO SCH ×2 (08:40→21:17)
[2020-03-06] MEDS: INSULIN REGULAR 100 UNIT/ML SUBCUT SCH ×4 (11:54→21:41)
[2020-03-06] MEDS ORDERED: WARFARIN 5 MG TABLET PO SCH (18:00)
[2020-03-06] MEDS: SIMVASTATIN 20 MG TABLET PO SCH (21:17)
[2020-03-07] MEDS: MORPHINE 4 MG/1 ML VIAL IV PRN ×5 (00:15→22:54)
[2020-03-07 05:51] LABS: Basophils % 0.2 % (0.0-0.8); Eosinophils # 0.1 10*3/uL (0.0-0.87); Eosinophils % 0.7 % (0.00-10.9); Hematocrit 29.5 VOL% (42.0-52.0); Hemoglobin 9.1 GM/DL (14.0-18.0); Immature Granulocytes % 0.6 %; Immature Granulocytes Absolute 0.07 #; Lymphocytes % 17.7 % (21.2-54.2); Mean Corpuscular HGB Conc 30.8 GM/DL (32-36); Mean Corpuscular Volume 92.2 FL (87-102); Mean Platelet Volume 10.9 FL (9.6-12.0); NRBC # 0.02 10*3/uL; Neutrophils % 71.8 % (38.7-73.9); Platelet Count 108 T/CUMM (130-400); Red Cell Distribution Width 16.6 % (9.3-17.3); White Blood Count 11.4 T/CUMM (4-12)
[2020-03-07 06:06] LABS: Calcium 8.4 MG/DL (8.5-10.1); Osmolality,Calculated 289.1 MOS/KG (273-304)
[2020-03-07 06:12] LABS: Alanine Aminotransferase 81 U/L (16-61); Albumin 3.2 G/DL (3.4-5.0); Alkaline Phosphatase 57 U/L (45-117); Aspartate Amino Transferase 104 U/L (0-37); Bilirubin,Indirect 1.4 MG/DL (0.0-1.0); Blood Urea Nitrogen 32 MG/DL (7-18); Calcium 8.8 MG/DL (8.5-10.1); Estimated Glom Filtration Rate 99 ML/MIN; Glucose 90 MG/DL (74-106); Osmolality,Calculated 289.1 MOS/KG (273-304); Total Protein 6.3 G/DL (6.4-8.3)
[2020-03-07 06:13] LABS: Troponin I 0.766 NG/ML (0.00-0.045)
[2020-03-07 06:18] LABS: INR 1.5; PT Patient Result 15.4 SECS (9.8-11.9)
[2020-03-07] MEDS: INSULIN REGULAR 100 UNIT/ML SUBCUT SCH ×4 (07:57→21:46)
[2020-03-07] MEDS ORDERED: DIAZEPAM 5 MG TABLET PO ONE (09:06)
[2020-03-07] MEDS ORDERED: diphenhydrAMINE CAP 25 MG CAPSULE PO ONE (09:06)
[2020-03-07] MEDS ORDERED: SODIUM CHLORIDE 0.9% 1,000 ML IV SCH (09:30)
[2020-03-07] MEDS: CHOLECALCIFEROL 1,000 UNIT TABLET PO SCH (09:41)
[2020-03-07] MEDS: CYANOCOBALAMIN 500 MCG TABLET PO SCH (09:42)
[2020-03-07] MEDS: ASPIRIN EC 325 MG TABLET PO SCH (09:42)
[2020-03-07] MEDS: POTASSIUM CHLORIDE 20 MEQ TABLET PO PRN ×2 (09:43→10:44)
[2020-03-07] MEDS: DOCUSATE SODIUM 100 MG CAPSULE PO SCH (09:43)
[2020-03-07] MEDS: MEMANTINE 10 MG TABLET PO SCH ×2 (09:44→20:12)
[2020-03-07] MEDS: GLIMEPIRIDE 2 MG TABLET PO SCH (09:44)
[2020-03-07] MEDS: FERROUS SULFATE 325 MG TABLET PO SCH (09:44)
[2020-03-07] MEDS: PANTOPRAZOLE 40 MG TABLET PO SCH ×2 (09:45→20:12)
[2020-03-07] MEDS: SERTRALINE 50 MG TABLET PO SCH (09:45)
[2020-03-07] MEDS: CHLORHEXIDINE 0.12% ORAL RINSE 60 ML BOTTLE SWISH/SPIT SCH ×2 (09:46→20:13)
[2020-03-07] MEDS: SIMVASTATIN 20 MG TABLET PO SCH (20:12)
[2020-03-08] MEDS: MORPHINE 4 MG/1 ML VIAL IV PRN ×6 (01:14→22:09)
[2020-03-08 03:02] LABS: Basophils % 0.3 % (0.0-0.8); Eosinophils # 0.1 10*3/uL (0.0-0.87); Eosinophils % 1.3 % (0.00-10.9); Hemoglobin 8.9 GM/DL (14.0-18.0); Immature Granulocytes % 0.4 %; Immature Granulocytes Absolute 0.04 #; Lymphocytes # 2.1 10*3/uL (1.4-4.0); Lymphocytes % 21.4 % (21.2-54.2); Mean Corpuscular HGB Conc 30.7 GM/DL (32-36); Mean Corpuscular Volume 92.7 FL (87-102); Mean Platelet Volume 10.1 FL (9.6-12.0); Monocytes % 9.8 % (1.7-12.7); NRBC # 0.05 10*3/uL; Neutrophils % 66.8 % (38.7-73.9); Platelet Count 113 T/CUMM (130-400); Red Blood Count 3.13 MC/CUMM (3.8-5.5); Red Cell Distribution Width 16.6 % (9.3-17.3); White Blood Count 9.7 T/CUMM (4-12)
[2020-03-08 03:11] LABS: INR 1.3; PT Patient Result 13.7 SECS (9.8-11.9)
[2020-03-08 03:20] LABS: Calcium 8.9 MG/DL (8.5-10.1); Osmolality,Calculated 286.3 MOS/KG (273-304)
[2020-03-08 03:27] LABS: Eosinophils 1 % (0-10); Hypochromasia Slight; Lymphocytes 17 % (20-55); Platelet Estimate Adequate; Segmented Neutrophils 76 % (50-85); Total Cells Counted 100
[2020-03-08] MEDS ORDERED: diphenhydrAMINE CAP 25 MG CAPSULE PO ONE (06:30)
[2020-03-08] MEDS ORDERED: DIAZEPAM 5 MG TABLET PO ONE (06:30)
[2020-03-08] MEDS ORDERED: SODIUM CHLORIDE 0.9% 1,000 ML IV SCH (06:30)
[2020-03-08] MEDS ORDERED: HEPARIN/NACL 0.9% 2 UNITS/ML 500 ML IV ONE (06:53)
[2020-03-08] MEDS: INSULIN REGULAR 100 UNIT/ML SUBCUT SCH ×4 (07:20→20:51)
[2020-03-08] MEDS ORDERED: LIDOCAINE 1% 20 ML VIAL ONE (09:17)
[2020-03-08] MEDS ORDERED: ceFAZolin 1,000 MG VIAL ONE (09:42)
[2020-03-08] MEDS ORDERED: HEPARIN 10,000 UNIT/10 ML VIAL ONE (10:43)
[2020-03-08] MEDS ORDERED: SEVOFLURANE 1 UNIT/15 MINUTE INH ONE (10:43)
[2020-03-08] MEDS ORDERED: SODIUM CHLORIDE 0.9% 100 ML IV ONE (10:43)
[2020-03-08] MEDS ORDERED: ETOMIDATE 40 MG/20 ML VIAL IV ONE (10:43)
[2020-03-08] MEDS: DOCUSATE SODIUM 100 MG CAPSULE PO SCH (11:13)
[2020-03-08] MEDS: CYANOCOBALAMIN 500 MCG TABLET PO SCH (11:13)
[2020-03-08] MEDS: ASPIRIN EC 325 MG TABLET PO SCH (11:13)
[2020-03-08] MEDS: POTASSIUM CHLORIDE 20 MEQ TABLET PO PRN (11:14)
[2020-03-08] MEDS: GLIMEPIRIDE 2 MG TABLET PO SCH (11:14)
[2020-03-08] MEDS: CHOLECALCIFEROL 1,000 UNIT TABLET PO SCH (11:14)
[2020-03-08] MEDS: SERTRALINE 50 MG TABLET PO SCH (11:14)
[2020-03-08] MEDS: FERROUS SULFATE 325 MG TABLET PO SCH (11:14)
[2020-03-08] MEDS: MEMANTINE 10 MG TABLET PO SCH ×2 (11:14→20:50)
[2020-03-08] MEDS: PANTOPRAZOLE 40 MG TABLET PO SCH ×2 (11:14→20:50)
[2020-03-08] MEDS: CHLORHEXIDINE 0.12% ORAL RINSE 60 ML BOTTLE SWISH/SPIT SCH ×2 (11:14→20:51)
[2020-03-08] MEDS: SIMVASTATIN 20 MG TABLET PO SCH (20:50)
[2020-03-09] MEDS: MORPHINE 4 MG/1 ML VIAL IV PRN ×3 (00:58→04:59)
[2020-03-09 05:40] LABS: Basophils % 0.2 % (0.0-0.8); Eosinophils # 0.1 10*3/uL (0.0-0.87); Eosinophils % 1.7 % (0.00-10.9); Hematocrit 28.8 VOL% (42.0-52.0); Hemoglobin 8.8 GM/DL (14.0-18.0); Immature Granulocytes % 0.6 %; Immature Granulocytes Absolute 0.05 #; Lymphocytes # 1.7 10*3/uL (1.4-4.0); Lymphocytes % 19.9 % (21.2-54.2); Mean Corpuscular HGB Conc 30.6 GM/DL (32-36); Mean Corpuscular Volume 93.8 FL (87-102); Mean Platelet Volume 10.1 FL (9.6-12.0); Monocytes % 12.6 % (1.7-12.7); NRBC # 0.05 10*3/uL; Platelet Count 120 T/CUMM (130-400); Red Blood Count 3.07 MC/CUMM (3.8-5.5); Red Cell Distribution Width 16.7 % (9.3-17.3); White Blood Count 8.5 T/CUMM (4-12)
[2020-03-09 05:54] LABS: INR 1.4; PT Patient Result 14.4 SECS (9.8-11.9)
[2020-03-09 06:18] LABS: Anisocytosis 2+; Basophilic Stippling Slight; Platelet Estimate Adequate
[2020-03-09 06:25] LABS: Alanine Aminotransferase 68 U/L (16-61); Albumin 3.1 G/DL (3.4-5.0); Alkaline Phosphatase 74 U/L (45-117); Aspartate Amino Transferase 46 U/L (0-37); Bilirubin,Indirect 1.7 MG/DL (0.0-1.0); Blood Urea Nitrogen 25 MG/DL (7-18); Calcium 8.5 MG/DL (8.5-10.1); Estimated Glom Filtration Rate 103 ML/MIN; Glucose 96 MG/DL (74-106)
[2020-03-09 06:26] LABS: Troponin I 0.305 NG/ML (0.00-0.045)
[2020-03-09] MEDS: INSULIN REGULAR 100 UNIT/ML SUBCUT SCH ×2 (07:44→12:40)
[2020-03-09] MEDS: GLIMEPIRIDE 2 MG TABLET PO SCH (08:35)
[2020-03-09] MEDS: CHLORHEXIDINE 0.12% ORAL RINSE 60 ML BOTTLE SWISH/SPIT SCH (08:36)
[2020-03-09] MEDS: DOCUSATE SODIUM 100 MG CAPSULE PO SCH (08:36)
[2020-03-09] MEDS: SERTRALINE 50 MG TABLET PO SCH (08:36)
[2020-03-09] MEDS: ASPIRIN EC 325 MG TABLET PO SCH (08:36)
[2020-03-09] MEDS: CYANOCOBALAMIN 500 MCG TABLET PO SCH (08:36)
[2020-03-09] MEDS: CHOLECALCIFEROL 1,000 UNIT TABLET PO SCH (08:36)
[2020-03-09] MEDS: POTASSIUM CHLORIDE 20 MEQ TABLET PO PRN ×2 (08:36→10:13)
[2020-03-09] MEDS: FERROUS SULFATE 325 MG TABLET PO SCH (08:36)
[2020-03-09] MEDS: PANTOPRAZOLE 40 MG TABLET PO SCH (08:36)
[2020-03-09] MEDS: MEMANTINE 10 MG TABLET PO SCH (08:36)
[2020-03-09] MEDS ORDERED: POLYETHYLENE GLYCOL POWDER 17 GM PACK PO SCH (09:31)
[2020-03-09 12:48] VITALS: BP 124/67
[2020-03-09] MEDS ORDERED: WARFARIN 5 MG TABLET PO SCH (18:00)
[2020-03-10] MEDS ORDERED: WARFARIN 2.5 MG TABLET PO SCH (18:00)
== END 2020-03-09 13:50 | disposition home health service (06) | DRG 229 ==
LOC: N.ED 12:22 → N.EDINP 12:22 → N.ICU 15:03 → N.TELEN 03-02 10:51 → N.CVR 03-04 11:37 → N.TELES 03-05 10:23
PROVIDERS: ADMIT Internal Medicine Cardiovascular Disease; ATTEND Internal Medicine Cardiovascular Disease
PROC: CLMICRA (2020-03-08 09:15)

== ENCOUNTER 2020-06-13 02:01 | Inpatient (IN) ==
[2020-06-13 03:34] LABS: Calcium Oxalate Crystals,Urine Many /HPF (Few); Hyaline Casts,Urine 1 /LPF (0-3); Mucus,Urine Occasional /LPF (Occasional); RBC,Urine 2 /HPF (0-4); WBC,Urine 2 /HPF (0-6)
[2020-06-13 03:37] LABS: Bilirubin,Urine Negative (Negative); Blood, Urine Negative (Negative); Glucose,Urine (UA) Negative (Negative); Ketones,Urine Negative (Negative); Nitrite,Urine Negative (Negative); Protein,Urine >=500 MG/DL; Urine Appearance Clear (Clear); Urine Color Yellow (Yellow); Urine Urobilinogen 0.2 EU/DL (0.2-1.0)
[2020-06-13 03:38] LABS: INR 3.8; PT Patient Result 37.7 SECS (9.8-11.9)
[2020-06-13 03:48] LABS: Basophils % 0.3 % (0.0-0.8); Eosinophils % 0.4 % (0.00-10.9); Hematocrit 33.8 VOL% (42.0-52.0); Immature Granulocytes % 0.4 %; Immature Granulocytes Absolute 0.03 #; Lymphocytes # 2.7 10*3/uL (1.4-4.0); Lymphocytes % 36.4 % (21.2-54.2); Mean Corpuscular HGB Conc 28.1 GM/DL (32-36); Mean Corpuscular Volume 88.3 FL (87-102); Mean Platelet Volume 10.4 FL (9.6-12.0); NRBC # 0.03 10*3/uL; Neutrophils % 54.5 % (38.7-73.9); Platelet Count 132 T/CUMM (130-400); Red Blood Count 3.83 MC/CUMM (3.8-5.5); Red Cell Distribution Width 23.9 % (9.3-17.3); White Blood Count 7.4 T/CUMM (4-12)
[2020-06-13 03:50] LABS: Albumin 2.9 G/DL (3.4-5.0); Bilirubin,Total 1.3 MG/DL (0.2-1.0); Calcium 8.3 MG/DL (8.5-10.1); Osmolality,Calculated 277.4 MOS/KG (273-304); Potassium 3.5 MMOL/L (3.5-5.1); Total Protein 6.3 G/DL (6.4-8.3)
[2020-06-13 03:51] LABS: Hemoglobin 9.5 GM/DL (14.0-18.0)
[2020-06-13 03:56] LABS: Hypochromasia Slight; Lymphocytes 16 % (20-55); Nucleated Red Blood Cells 1 (0-5); Platelet Estimate Normal; Segmented Neutrophils 78 % (50-85); Total Cells Counted 100
[2020-06-13] MEDS ORDERED: PIPERACILLIN/TAZOBACTAM 3,375 MG in SODIUM CHLORIDE 0.9% 100 ML IV STA (04:00)
[2020-06-13] MEDS ORDERED: DEXTROSE 50% 25 GM/50 ML SYRINGE IV ONE ×5 (04:02→12:57)
[2020-06-13] MEDS ORDERED: DEXTROSE 50% 25 GM/50 ML VIAL IV STA (04:05)
[2020-06-13] MEDS ORDERED: ONDANSETRON 4 MG/2 ML VIAL IV PRN (04:33)
[2020-06-13] MEDS ORDERED: DEXT 5% NACL 0.45% KCL 10 MEQ 10 MEQ/1,000 ML BAG IV SCH (06:30)
[2020-06-13] MEDS ORDERED: DEXTROSE 50% 25 GM/50 ML VIAL IV ONE (06:49)
[2020-06-13] MEDS: DEXTROSE 50% 25 GM/50 ML VIAL IV PRN ×7 (08:53→22:32)
[2020-06-13] MEDS ORDERED: DEXTROSE 10% 250 ML IV ONE (09:21)
[2020-06-13] MEDS: PANTOPRAZOLE 40 MG TABLET PO SCH (09:24)
[2020-06-13] MEDS: DEXTROSE 10% 1,000 ML IV SCH (09:25)
[2020-06-13] MEDS ORDERED: FUROSEMIDE 40 MG/4 ML VIAL IV ONE (11:21)
[2020-06-13] MEDS ORDERED: PIPERACILLIN/TAZOBACTAM 3,375 MG VIAL IV ONE (12:26)
[2020-06-13] MEDS: PIPERACILLIN/TAZOBACTAM 3,375 MG in SODIUM CHLORIDE 0.9% 100 ML IV SCH ×2 (12:35→21:27)
[2020-06-13] MEDS: carvediloL 3.125 MG TABLET PO SCH (21:25)
[2020-06-13] MEDS: SIMVASTATIN 20 MG TABLET PO SCH (21:25)
[2020-06-13] MEDS: MEMANTINE 10 MG TABLET PO SCH (21:25)
[2020-06-13] MEDS: gemfibroziL 600 MG TABLET PO SCH (21:29)
[2020-06-14] MEDS: DEXTROSE 50% 25 GM/50 ML VIAL IV PRN ×8 (00:22→16:17)
[2020-06-14] MEDS: DEXTROSE 10% 1,000 ML IV SCH ×3 (02:30→17:40)
[2020-06-14] MEDS: PIPERACILLIN/TAZOBACTAM 3,375 MG in SODIUM CHLORIDE 0.9% 100 ML IV SCH ×3 (04:13→21:41)
[2020-06-14 06:39] LABS: Basophils % 0.2 % (0.0-0.8); Eosinophils % 0.4 % (0.00-10.9); Hematocrit 31.3 VOL% (42.0-52.0); Hemoglobin 9.1 GM/DL (14.0-18.0); Immature Granulocytes % 0.5 %; Immature Granulocytes Absolute 0.04 #; Lymphocytes # 1.9 10*3/uL (1.4-4.0); Lymphocytes % 23.5 % (21.2-54.2); Mean Corpuscular HGB Conc 29.1 GM/DL (32-36); Mean Corpuscular Volume 85.1 FL (87-102); Mean Platelet Volume 10.4 FL (9.6-12.0); Monocytes % 10.8 % (1.7-12.7); Neutrophils % 64.6 % (38.7-73.9); Platelet Count 126 T/CUMM (130-400); Red Blood Count 3.68 MC/CUMM (3.8-5.5); Red Cell Distribution Width 24.1 % (9.3-17.3); White Blood Count 8.1 T/CUMM (4-12)
[2020-06-14 06:59] LABS: Hypochromasia 1+; Ovalocytes Slight
[2020-06-14 07:09] LABS: Calcium 8.3 MG/DL (8.5-10.1); Osmolality,Calculated 273.8 MOS/KG (273-304); Potassium 2.7 MMOL/L (3.5-5.1)
[2020-06-14 07:13] LABS: Albumin 2.7 G/DL (3.4-5.0); Bilirubin,Total 1.8 MG/DL (0.2-1.0); Calcium 8.2 MG/DL (8.5-10.1); Osmolality,Calculated 275.7 MOS/KG (273-304); Potassium 2.7 MMOL/L (3.5-5.1); Total Protein 5.9 G/DL (6.4-8.3)
[2020-06-14] MEDS ORDERED: POTASSIUM CHLORIDE 20 MEQ TABLET PO ONE ×2 (08:00→21:00)
[2020-06-14] MEDS ORDERED: FUROSEMIDE 40 MG/4 ML VIAL IV ONE (08:51)
[2020-06-14] MEDS: ASPIRIN EC 81 MG TABLET PO SCH (09:07)
[2020-06-14] MEDS: gemfibroziL 600 MG TABLET PO SCH (09:07)
[2020-06-14] MEDS: MEMANTINE 10 MG TABLET PO SCH (09:08)
[2020-06-14] MEDS: PANTOPRAZOLE 40 MG TABLET PO SCH (09:08)
[2020-06-14] MEDS: carvediloL 3.125 MG TABLET PO SCH (09:08)
[2020-06-14] MEDS: SERTRALINE 100 MG TABLET PO SCH (09:08)
[2020-06-14 09:43] LABS: INR 2.4; PT Patient Result 25.1 SECS (9.8-11.9)
[2020-06-14] MEDS: POTASSIUM CHLORIDE 20 MEQ TABLET PO PRN ×4 (11:30→18:26)
[2020-06-14 21:35] LABS: Albumin 2.6 G/DL (3.4-5.0); Bilirubin,Total 1.6 MG/DL (0.2-1.0); Osmolality,Calculated 280.1 MOS/KG (273-304); Potassium 3.2 MMOL/L (3.5-5.1)
[2020-06-14 21:44] LABS: Blood Urea Nitrogen 11 MG/DL (7-18); Carbon Dioxide 29 MMOL/L (21-32); Estimated Glom Filtration Rate 85 ML/MIN; Glucose 324 MG/DL (74-106); Osmolality,Calculated 281.1 MOS/KG (273-304); Potassium 3.1 MMOL/L (3.5-5.1); Sodium 135 MMOL/L (136-145)
[2020-06-14 21:45] LABS: Troponin I 0.049 NG/ML (0.00-0.045)
[2020-06-14 21:52] LABS: Basophils % 0.2 % (0.0-0.8); Eosinophils % 0.5 % (0.00-10.9); Hematocrit 32.1 VOL% (42.0-52.0); Hemoglobin 9.5 GM/DL (14.0-18.0); Immature Granulocytes % 0.4 %; Immature Granulocytes Absolute 0.03 #; Lymphocytes # 2.2 10*3/uL (1.4-4.0); Lymphocytes % 27.3 % (21.2-54.2); Mean Corpuscular HGB Conc 29.6 GM/DL (32-36); Mean Corpuscular Volume 84.7 FL (87-102); Mean Platelet Volume 10.1 FL (9.6-12.0); Monocytes % 12.2 % (1.7-12.7); Neutrophils % 59.4 % (38.7-73.9); Platelet Count 129 T/CUMM (130-400); Red Blood Count 3.79 MC/CUMM (3.8-5.5); Red Cell Distribution Width 24.6 % (9.3-17.3)
[2020-06-14 22:33] LABS: ABG Base Excess 4.2 MMOL/L (-2.5-2.5); ABG HCO3 28.5 MMOL/L (20-26); ABG Oxygen Saturation 84.9 % (95-100); ABG PO2 52.1 MM HG (80-95); ABG TCO2 29.8 MMOL/L (23-27)
[2020-06-15] MEDS: DEXTROSE 10% 1,000 ML IV SCH ×3 (00:51→14:52)
[2020-06-15] MEDS: carvediloL 3.125 MG TABLET PO SCH ×3 (01:41→20:45)
[2020-06-15] MEDS: SIMVASTATIN 20 MG TABLET PO SCH ×2 (01:43→20:46)
[2020-06-15] MEDS: gemfibroziL 600 MG TABLET PO SCH ×3 (01:43→20:45)
[2020-06-15] MEDS: MEMANTINE 10 MG TABLET PO SCH ×3 (01:43→20:45)
[2020-06-15] MEDS: ASCORBIC ACID 500 MG TABLET PO SCH ×3 (01:43→20:45)
[2020-06-15] MEDS: PIPERACILLIN/TAZOBACTAM 3,375 MG in SODIUM CHLORIDE 0.9% 100 ML IV SCH ×3 (04:20→20:41)
[2020-06-15 05:39] LABS: INR 2.3; PT Patient Result 23.5 SECS (9.8-11.9)
[2020-06-15 06:05] LABS: Calcium 8.7 MG/DL (8.5-10.1); Osmolality,Calculated 274.2 MOS/KG (273-304); Potassium 3.3 MMOL/L (3.5-5.1)
[2020-06-15] MEDS: ASPIRIN EC 81 MG TABLET PO SCH (09:28)
[2020-06-15] MEDS: PANTOPRAZOLE 40 MG TABLET PO SCH (09:28)
[2020-06-15] MEDS: SERTRALINE 100 MG TABLET PO SCH (09:29)
[2020-06-15 12:09] LABS: ABG Base Excess -0.3 MMOL/L (-2.5-2.5); ABG HCO3 24.5 MMOL/L (20-26); ABG Oxygen Saturation 93.8 % (95-100); ABG PCO2 40.4 MM HG (35-48); ABG PO2 73.5 MM HG (80-95); ABG TCO2 25.7 MMOL/L (23-27)
[2020-06-15] MEDS ORDERED: SODIUM CHLORIDE 0.65% NASAL SPRAY 45 ML BOTTLE BOTH NARES PRN (14:44)
[2020-06-16] MEDS: PIPERACILLIN/TAZOBACTAM 3,375 MG in SODIUM CHLORIDE 0.9% 100 ML IV SCH ×3 (05:12→21:32)
[2020-06-16 05:52] LABS: Calcium 9.3 MG/DL (8.5-10.1); Potassium 3.7 MMOL/L (3.5-5.1)
[2020-06-16 06:39] LABS: INR 3.6
[2020-06-16 06:48] LABS: Basophils % 0.1 % (0.0-0.8); Hematocrit 35.1 VOL% (42.0-52.0); Immature Granulocytes % 0.4 %; Immature Granulocytes Absolute 0.04 #; Lymphocytes # 3.2 10*3/uL (1.4-4.0); Lymphocytes % 31.3 % (21.2-54.2); Mean Corpuscular HGB Conc 28.5 GM/DL (32-36); Mean Corpuscular Volume 87.1 FL (87-102); Mean Platelet Volume 10.1 FL (9.6-12.0); Monocytes % 9.9 % (1.7-12.7); Neutrophils % 58.3 % (38.7-73.9); Platelet Count 137 T/CUMM (130-400); Red Blood Count 4.03 MC/CUMM (3.8-5.5); White Blood Count 10.3 T/CUMM (4-12)
[2020-06-16 06:52] LABS: PT Patient Result 35.9 SECS (9.8-11.9)
[2020-06-16 06:54] LABS: Platelet Estimate Adequate
[2020-06-16 06:55] LABS: Anisocytosis 3+; Hypochromasia 1+; Poikilocytosis 1+; Tear Drop Cells Few
[2020-06-16 06:56] LABS: Burr Cells Few; Ovalocytes Few; Polychromasia Slight
[2020-06-16] MEDS: SERTRALINE 100 MG TABLET PO SCH (08:00)
[2020-06-16] MEDS: MEMANTINE 10 MG TABLET PO SCH ×2 (08:00→21:32)
[2020-06-16] MEDS: PANTOPRAZOLE 40 MG TABLET PO SCH (08:00)
[2020-06-16] MEDS: ASCORBIC ACID 500 MG TABLET PO SCH ×2 (08:00→21:32)
[2020-06-16] MEDS: ASPIRIN EC 81 MG TABLET PO SCH (08:00)
[2020-06-16] MEDS: gemfibroziL 600 MG TABLET PO SCH ×2 (08:01→21:32)
[2020-06-16] MEDS: carvediloL 3.125 MG TABLET PO SCH ×2 (08:01→21:32)
[2020-06-16] MEDS: SIMVASTATIN 20 MG TABLET PO SCH (21:32)
[2020-06-17] MEDS: PIPERACILLIN/TAZOBACTAM 3,375 MG in SODIUM CHLORIDE 0.9% 100 ML IV SCH ×2 (03:55→12:50)
[2020-06-17 05:36] LABS: Calcium 9.5 MG/DL (8.5-10.1); INR 3.9; Osmolality,Calculated 275.8 MOS/KG (273-304); Potassium 3.7 MMOL/L (3.5-5.1)
[2020-06-17 06:02] LABS: Hematocrit 33.5 VOL% (42.0-52.0); Immature Granulocytes % 0.5 %; Immature Granulocytes Absolute 0.05 #; Lymphocytes # 2.5 10*3/uL (1.4-4.0); Mean Corpuscular HGB Conc 29.3 GM/DL (32-36); Mean Corpuscular Volume 86.6 FL (87-102); Mean Platelet Volume 9.9 FL (9.6-12.0); Monocytes % 10.3 % (1.7-12.7); Neutrophils % 63.2 % (38.7-73.9); Platelet Count 129 T/CUMM (130-400); Red Blood Count 3.87 MC/CUMM (3.8-5.5); White Blood Count 9.5 T/CUMM (4-12)
[2020-06-17 06:04] LABS: Hemoglobin 9.8 GM/DL (14.0-18.0)
[2020-06-17 06:19] LABS: PT Patient Result 38.8 SECS (9.8-11.9)
[2020-06-17 06:47] LABS: Hypochromasia 1+; Lymphocytes 18 % (20-55); Segmented Neutrophils 75 % (50-85); Total Cells Counted 100
[2020-06-17 06:49] LABS: Anisocytosis 1+; Microcytosis 1+
[2020-06-17 06:50] LABS: Acanthocytes Few; Elliptocytes Few; Platelet Estimate Adequate
[2020-06-17] MEDS: ASPIRIN EC 81 MG TABLET PO SCH (09:24)
[2020-06-17] MEDS: gemfibroziL 600 MG TABLET PO SCH (09:25)
[2020-06-17] MEDS: PANTOPRAZOLE 40 MG TABLET PO SCH (09:25)
[2020-06-17] MEDS: carvediloL 3.125 MG TABLET PO SCH (09:25)
[2020-06-17] MEDS: SERTRALINE 100 MG TABLET PO SCH (09:25)
[2020-06-17] MEDS: MEMANTINE 10 MG TABLET PO SCH (09:25)
[2020-06-17] MEDS: ASCORBIC ACID 500 MG TABLET PO SCH (09:25)
[2020-06-17] MEDS: DEXTROSE 50% 25 GM/50 ML VIAL IV PRN (12:00)
[2020-06-18] MEDS: gemfibroziL 600 MG TABLET PO SCH ×2 (00:37→09:53)
[2020-06-18] MEDS: MEMANTINE 10 MG TABLET PO SCH ×2 (00:37→09:53)
[2020-06-18] MEDS: ASCORBIC ACID 500 MG TABLET PO SCH ×2 (00:39→09:53)
[2020-06-18] MEDS: SIMVASTATIN 20 MG TABLET PO SCH (00:40)
[2020-06-18] MEDS: carvediloL 3.125 MG TABLET PO SCH ×2 (00:40→09:53)
[2020-06-18] MEDS: PIPERACILLIN/TAZOBACTAM 3,375 MG in SODIUM CHLORIDE 0.9% 100 ML IV SCH ×2 (00:47→14:14)
[2020-06-18 07:13] LABS: INR 3.1
[2020-06-18 07:24] LABS: Calcium 9.4 MG/DL (8.5-10.1); Osmolality,Calculated 283.8 MOS/KG (273-304); Potassium 3.3 MMOL/L (3.5-5.1)
[2020-06-18 08:08] LABS: PT Patient Result 31.3 SECS (9.8-11.9)
[2020-06-18 08:31] LABS: Basophils % 0.1 % (0.0-0.8); Eosinophils % 0.4 % (0.00-10.9); Hematocrit 32.1 VOL% (42.0-52.0); Hemoglobin 9.3 GM/DL (14.0-18.0); Immature Granulocytes % 0.4 %; Immature Granulocytes Absolute 0.03 #; Lymphocytes # 1.6 10*3/uL (1.4-4.0); Mean Corpuscular Volume 88.4 FL (87-102); Mean Platelet Volume 11.6 FL (9.6-12.0); Monocytes % 9.9 % (1.7-12.7); Neutrophils % 65.2 % (38.7-73.9); Platelet Count 110 T/CUMM (130-400); Red Blood Count 3.63 MC/CUMM (3.8-5.5); Red Cell Distribution Width 25.4 % (9.3-17.3); White Blood Count 6.8 T/CUMM (4-12)
[2020-06-18] MEDS: SERTRALINE 100 MG TABLET PO SCH (09:53)
[2020-06-18] MEDS: PANTOPRAZOLE 40 MG TABLET PO SCH (09:53)
[2020-06-18] MEDS: ASPIRIN EC 81 MG TABLET PO SCH (09:53)
[2020-06-18] MEDS: POTASSIUM CHLORIDE 20 MEQ TABLET PO PRN (09:54)
[2020-06-18] MEDS ORDERED: FUROSEMIDE 40 MG/4 ML VIAL IV ONE (10:05)
[2020-06-18] MEDS ORDERED: PHYTONADIONE 5 MG/5 ML ORAL.SYR PO ONE (10:05)
[2020-06-18] MEDS: POTASSIUM CHLORIDE RIDER 10 MEQ in PREMIX 1 EACH IV SCH ×4 (15:08→23:24)
[2020-06-18] MEDS ORDERED: HALOPERIDOL 5 MG/ML AMP IV ONE (20:44)
[2020-06-19] MEDS: carvediloL 3.125 MG TABLET PO SCH ×2 (02:54→13:43)
[2020-06-19] MEDS: PIPERACILLIN/TAZOBACTAM 3,375 MG in SODIUM CHLORIDE 0.9% 100 ML IV SCH ×3 (02:55→13:56)
[2020-06-19] MEDS: ASCORBIC ACID 500 MG TABLET PO SCH ×2 (02:55→13:42)
[2020-06-19] MEDS: gemfibroziL 600 MG TABLET PO SCH ×2 (02:55→13:56)
[2020-06-19] MEDS: SIMVASTATIN 20 MG TABLET PO SCH (02:55)
[2020-06-19] MEDS: MEMANTINE 10 MG TABLET PO SCH ×2 (02:55→13:42)
[2020-06-19] MEDS ORDERED: HALOPERIDOL 5 MG/ML AMP IV PRN (02:57)
[2020-06-19] MEDS ORDERED: POTASSIUM CHLORIDE RIDER 10 MEQ in PREMIX 1 EACH IV SCH (03:30)
[2020-06-19] MEDS: POTASSIUM CHLORIDE RIDER 10 MEQ in PREMIX 1 EACH IV SCH (03:50)
[2020-06-19 06:57] LABS: PT Patient Result 20.5 SECS (9.8-11.9)
[2020-06-19 07:01] LABS: Potassium 3.6 MMOL/L (3.5-5.1)
[2020-06-19 07:35] LABS: Eosinophils % 0.3 % (0.00-10.9); Hematocrit 31.1 VOL% (42.0-52.0); Hemoglobin 9.1 GM/DL (14.0-18.0); Immature Granulocytes % 0.3 %; Immature Granulocytes Absolute 0.02 #; Lymphocytes # 1.4 10*3/uL (1.4-4.0); Lymphocytes % 23.1 % (21.2-54.2); Mean Corpuscular HGB Conc 29.3 GM/DL (32-36); Mean Corpuscular Volume 88.9 FL (87-102); Monocytes % 10.4 % (1.7-12.7); NRBC # 0.02 10*3/uL; Neutrophils % 65.9 % (38.7-73.9); Platelet Count 78 T/CUMM (130-400); Red Cell Distribution Width 25.9 % (9.3-17.3)
[2020-06-19 09:08] LABS: Anisocytosis 1+; Band Neutrophils 3 % (0-10); Hypersegmented Neutrophil Few; Lymphocytes 20 % (20-55); Macrocytosis 1+; Metamyelocytes 2 %; Platelet Estimate Decreased; Segmented Neutrophils 65 % (50-85); Total Cells Counted 100
[2020-06-19] MEDS: PANTOPRAZOLE 40 MG TABLET PO SCH (13:42)
[2020-06-19] MEDS: SERTRALINE 100 MG TABLET PO SCH (13:43)
[2020-06-19] MEDS: ASPIRIN EC 81 MG TABLET PO SCH (15:09)
[2020-06-20] MEDS: PIPERACILLIN/TAZOBACTAM 3,375 MG in SODIUM CHLORIDE 0.9% 100 ML IV SCH ×4 (00:31→21:38)
[2020-06-20] MEDS: MEMANTINE 10 MG TABLET PO SCH ×3 (01:50→21:43)
[2020-06-20] MEDS: carvediloL 3.125 MG TABLET PO SCH ×3 (01:50→21:43)
[2020-06-20] MEDS: gemfibroziL 600 MG TABLET PO SCH ×3 (01:50→21:43)
[2020-06-20] MEDS: SIMVASTATIN 20 MG TABLET PO SCH ×2 (01:50→21:43)
[2020-06-20] MEDS: ASCORBIC ACID 500 MG TABLET PO SCH ×3 (01:50→21:43)
[2020-06-20 05:30] LABS: INR 1.6; PT Patient Result 16.3 SECS (9.8-11.9)
[2020-06-20 05:31] LABS: INR 1.7; PT Patient Result 17.3 SECS (9.8-11.9); Partial Thromboplastin Time 34.9 SECS (23.9-33.8)
[2020-06-20 05:49] LABS: Calcium 9.3 MG/DL (8.5-10.1); Osmolality,Calculated 298.4 MOS/KG (273-304); Potassium 3.7 MMOL/L (3.5-5.1)
[2020-06-20 07:42] LABS: Basophils % 0.1 % (0.0-0.8); Eosinophils # 0.1 10*3/uL (0.0-0.87); Hematocrit 39.4 VOL% (42.0-52.0); Immature Granulocytes % 0.3 %; Immature Granulocytes Absolute 0.02 #; Lymphocytes # 1.2 10*3/uL (1.4-4.0); Lymphocytes % 16.7 % (21.2-54.2); Mean Corpuscular HGB Conc 26.9 GM/DL (32-36); Mean Corpuscular Volume 96.8 FL (87-102); Mean Platelet Volume 11.9 FL (9.6-12.0); Monocytes % 9.9 % (1.7-12.7); NRBC # 0.04 10*3/uL; Red Blood Count 4.07 MC/CUMM (3.8-5.5); Red Cell Distribution Width 27.2 % (9.3-17.3); White Blood Count 7.1 T/CUMM (4-12)
[2020-06-20 07:43] LABS: Hemoglobin 10.6 GM/DL (14.0-18.0); Platelet Count 83 T/CUMM (130-400)
[2020-06-20 07:47] LABS: Lymphocytes 27 % (20-55); Segmented Neutrophils 66 % (50-85); Total Cells Counted 100
[2020-06-20 07:48] LABS: Hypochromasia Slight; Macrocytosis Slight; Ovalocytes Slight; Platelet Estimate Decreased
[2020-06-20] MEDS: SERTRALINE 100 MG TABLET PO SCH (09:48)
[2020-06-20] MEDS: PANTOPRAZOLE 40 MG TABLET PO SCH (09:48)
[2020-06-21 05:55] LABS: INR 1.3; PT Patient Result 14.1 SECS (9.8-11.9)
[2020-06-21] MEDS: ASCORBIC ACID 500 MG TABLET PO SCH ×2 (08:14→21:27)
[2020-06-21] MEDS: MEMANTINE 10 MG TABLET PO SCH ×2 (08:14→21:24)
[2020-06-21] MEDS: SERTRALINE 100 MG TABLET PO SCH (08:14)
[2020-06-21] MEDS: carvediloL 3.125 MG TABLET PO SCH ×2 (08:14→21:24)
[2020-06-21] MEDS: PANTOPRAZOLE 40 MG TABLET PO SCH (08:14)
[2020-06-21] MEDS: ASPIRIN EC 81 MG TABLET PO SCH (08:14)
[2020-06-21] MEDS: gemfibroziL 600 MG TABLET PO SCH ×2 (08:14→21:27)
[2020-06-21 15:37] LABS: Glucose,Pleural Fluid 183 MG/DL; LDH,Body Fluid 92 U/L; Total Protein,Body Fluid < 2.0 G/DL
[2020-06-21 18:38] LABS: Lymphocytes,Pleural Fluid 56 %; Monocytes,Pleural Fluid 42 %; Neutrophils,Pleural Fluid 2 %
[2020-06-21 18:39] LABS: RBC,Pleural Fluid 66 T/CUMM
[2020-06-21] MEDS: SIMVASTATIN 20 MG TABLET PO SCH (21:27)
[2020-06-22 06:52] LABS: INR 1.4; PT Patient Result 14.5 SECS (9.8-11.9)
[2020-06-22] MEDS: PANTOPRAZOLE 40 MG TABLET PO SCH (09:38)
[2020-06-22] MEDS: MEMANTINE 10 MG TABLET PO SCH ×2 (09:39→20:53)
[2020-06-22] MEDS: ASPIRIN EC 81 MG TABLET PO SCH (09:39)
[2020-06-22] MEDS: ASCORBIC ACID 500 MG TABLET PO SCH ×2 (09:39→20:52)
[2020-06-22] MEDS: SERTRALINE 100 MG TABLET PO SCH (09:39)
[2020-06-22] MEDS: carvediloL 3.125 MG TABLET PO SCH ×2 (09:39→20:53)
[2020-06-22] MEDS: gemfibroziL 600 MG TABLET PO SCH ×2 (09:43→20:53)
[2020-06-22] MEDS: WARFARIN 2.5 MG TABLET PO SCH (18:15)
[2020-06-22] MEDS: SIMVASTATIN 20 MG TABLET PO SCH (20:53)
[2020-06-23 05:58] LABS: Calcium 9.4 MG/DL (8.5-10.1); Potassium 4.3 MMOL/L (3.5-5.1)
[2020-06-23 06:56] LABS: INR 1.3
[2020-06-23 07:13] LABS: Basophils % 0.1 % (0.0-0.8); Eosinophils % 0.1 % (0.00-10.9); Hematocrit 32.8 VOL% (42.0-52.0); Immature Granulocytes % 0.6 %; Immature Granulocytes Absolute 0.05 #; Lymphocytes # 1.2 10*3/uL (1.4-4.0); Lymphocytes % 14.4 % (21.2-54.2); Mean Corpuscular HGB Conc 27.7 GM/DL (32-36); Mean Corpuscular Volume 91.6 FL (87-102); Monocytes % 4.7 % (1.7-12.7); NRBC # 0.03 10*3/uL; Neutrophils % 80.1 % (38.7-73.9); Red Blood Count 3.58 MC/CUMM (3.8-5.5); Red Cell Distribution Width 27.1 % (9.3-17.3); White Blood Count 8.5 T/CUMM (4-12)
[2020-06-23 07:14] LABS: Hemoglobin 9.1 GM/DL (14.0-18.0); Platelet Count 63 T/CUMM (130-400)
[2020-06-23 07:15] LABS: Hypochromasia 1+; Microcytosis 1+; Ovalocytes Slight; Platelet Estimate Decreased
[2020-06-23] MEDS: SERTRALINE 100 MG TABLET PO SCH (09:36)
[2020-06-23] MEDS: ASCORBIC ACID 500 MG TABLET PO SCH ×2 (09:36→23:07)
[2020-06-23] MEDS: ASPIRIN EC 81 MG TABLET PO SCH (09:36)
[2020-06-23] MEDS: PANTOPRAZOLE 40 MG TABLET PO SCH (09:37)
[2020-06-23] MEDS: carvediloL 3.125 MG TABLET PO SCH ×2 (09:37→23:06)
[2020-06-23] MEDS: gemfibroziL 600 MG TABLET PO SCH ×2 (09:37→23:06)
[2020-06-23] MEDS: MEMANTINE 10 MG TABLET PO SCH ×2 (09:37→23:07)
[2020-06-23] MEDS ORDERED: VANCOMYCIN INJ 1,500 MG in SODIUM CHLORIDE 0.9% 500 ML IV ONE (11:00)
[2020-06-23] MEDS ORDERED: VANCOMYCIN INJ 1,000 MG in SODIUM CHLORIDE 0.9% 250 ML IV SCH (11:00)
[2020-06-23] MEDS: DEXTROSE 5% 1,000 ML IV SCH (11:52)
[2020-06-23] MEDS: PIPERACILLIN/TAZOBACTAM 3,375 MG in SODIUM CHLORIDE 0.9% 100 ML IV SCH ×2 (11:55→18:21)
[2020-06-23] MEDS: DESITIN 4OZ/NYSTATIN 15 GRAM MIXTURE PASTE TOP SCH ×2 (15:40→21:48)
[2020-06-23] MEDS: WARFARIN 2.5 MG TABLET PO SCH (17:54)
[2020-06-23] MEDS ORDERED: FUROSEMIDE 40 MG/4 ML VIAL IV ONE (20:15)
[2020-06-23] MEDS: VANCOMYCIN INJ 1,250 MG in SODIUM CHLORIDE 0.9% 250 ML IV SCH (23:05)
[2020-06-23] MEDS: SIMVASTATIN 20 MG TABLET PO SCH (23:07)
[2020-06-24] MEDS: DEXTROSE 5% 1,000 ML IV SCH ×2 (02:05→11:06)
[2020-06-24] MEDS: PIPERACILLIN/TAZOBACTAM 3,375 MG in SODIUM CHLORIDE 0.9% 100 ML IV SCH ×3 (02:41→18:01)
[2020-06-24 08:27] LABS: INR 1.3; PT Patient Result 14.1 SECS (9.8-11.9)
[2020-06-24 08:36] LABS: Calcium 9.6 MG/DL (8.5-10.1); Osmolality,Calculated 312.6 MOS/KG (273-304); Potassium 4.1 MMOL/L (3.5-5.1)
[2020-06-24] MEDS: DESITIN 4OZ/NYSTATIN 15 GRAM MIXTURE PASTE TOP SCH ×2 (09:35→21:24)
[2020-06-24] MEDS: ASPIRIN EC 81 MG TABLET PO SCH (11:34)
[2020-06-24] MEDS: MULTIVITAMIN (CENTRUM) TABLET PO SCH (11:35)
[2020-06-24] MEDS: carvediloL 3.125 MG TABLET PO SCH ×2 (11:35→21:24)
[2020-06-24] MEDS: PANTOPRAZOLE 40 MG TABLET PO SCH (11:35)
[2020-06-24] MEDS: gemfibroziL 600 MG TABLET PO SCH ×2 (11:35→21:24)
[2020-06-24] MEDS: MEMANTINE 10 MG TABLET PO SCH ×2 (11:35→21:24)
[2020-06-24] MEDS: SERTRALINE 100 MG TABLET PO SCH (11:36)
[2020-06-24] MEDS: ASCORBIC ACID 500 MG TABLET PO SCH ×2 (11:36→21:24)
[2020-06-24] MEDS: VANCOMYCIN INJ 1,250 MG in SODIUM CHLORIDE 0.9% 250 ML IV SCH ×2 (11:58→23:07)
[2020-06-24] MEDS: WARFARIN 2.5 MG TABLET PO SCH (19:25)
[2020-06-24] MEDS: ALBUTEROL/IPRATROPIUM 3 ML NEB RESP TX SCH (21:16)
[2020-06-24] MEDS: SIMVASTATIN 20 MG TABLET PO SCH (21:24)
[2020-06-25] MEDS: ALBUTEROL/IPRATROPIUM 3 ML NEB RESP TX SCH ×4 (00:21→20:00)
[2020-06-25] MEDS: PIPERACILLIN/TAZOBACTAM 3,375 MG in SODIUM CHLORIDE 0.9% 100 ML IV SCH ×3 (03:02→18:32)
[2020-06-25] MEDS: DEXTROSE 5% 1,000 ML IV SCH ×3 (03:02→16:14)
[2020-06-25 06:35] LABS: Calcium 9.9 MG/DL (8.5-10.1); Osmolality,Calculated 311.7 MOS/KG (273-304); Potassium 4.5 MMOL/L (3.5-5.1)
[2020-06-25] MEDS ORDERED: ETOMIDATE 20 MG/10 ML VIAL IV ONE ×2 (06:35→06:45)
[2020-06-25] MEDS ORDERED: ROCURONIUM 100 MG/10 ML VIAL IV ONE ×2 (06:36→06:46)
[2020-06-25 07:00] LABS: ABG Base Excess 0.6 MMOL/L (-2.5-2.5); ABG HCO3 24.7 MMOL/L (20-26); ABG Oxygen Saturation 81.5 % (95-100); ABG PO2 59.6 MM HG (80-95); ABG TCO2 30.6 MMOL/L (23-27)
[2020-06-25 07:02] LABS: ABG PCO2 92.4 MM HG (35-48); ABG PH 7.152 (7.35-7.45)
[2020-06-25 07:57] LABS: Troponin I 0.065 NG/ML (0.00-0.045)
[2020-06-25 08:01] LABS: Allen Test Positive; Pt O2 Delivery Device Ventilator
[2020-06-25 08:02] LABS: ABG Base Excess 3.2 MMOL/L (-2.5-2.5); ABG HCO3 29.2 MMOL/L (20-26); ABG Oxygen Saturation 93.8 % (95-100); ABG PCO2 51.6 MM HG (35-48); ABG PO2 68.5 MM HG (80-95); ABG TCO2 30.7 MMOL/L (23-27)
[2020-06-25 08:19] LABS: Bacteria,Urine Occasional /HPF (Few); Bilirubin,Urine Negative (Negative); Blood, Urine Negative (Negative); Glucose,Urine (UA) Negative (Negative); Ketones,Urine Negative (Negative); Mucus,Urine Occasional /LPF (Occasional); Nitrite,Urine Negative (Negative); Protein,Urine 30 MG/DL; Squamous Epithelial Cell,Urine Occasional /HPF (0-10); Urine Appearance CLOUDY (Clear); Urine Specific Gravity 1.027 (1.001-1.035); Urine Urobilinogen < 2.0 EU/DL (0.2-1.0)
[2020-06-25 08:20] LABS: Urine Color Dark yellow (Yellow)
[2020-06-25] MEDS: MULTIVITAMIN (CENTRUM) TABLET PO SCH (08:53)
[2020-06-25] MEDS: ASCORBIC ACID 500 MG TABLET PO SCH ×2 (08:53→22:11)
[2020-06-25] MEDS: ASPIRIN EC 81 MG TABLET PO SCH (08:53)
[2020-06-25] MEDS: gemfibroziL 600 MG TABLET PO SCH ×2 (08:53→22:11)
[2020-06-25] MEDS: MEMANTINE 10 MG TABLET PO SCH ×2 (08:53→22:11)
[2020-06-25] MEDS: carvediloL 3.125 MG TABLET PO SCH ×2 (08:53→22:12)
[2020-06-25] MEDS: SERTRALINE 100 MG TABLET PO SCH (08:53)
[2020-06-25] MEDS: PANTOPRAZOLE 40 MG TABLET PO SCH (08:54)
[2020-06-25] MEDS ORDERED: FUROSEMIDE 40 MG/4 ML VIAL IV ONE (08:55)
[2020-06-25] MEDS: DESITIN 4OZ/NYSTATIN 15 GRAM MIXTURE PASTE TOP SCH ×2 (09:05→22:31)
[2020-06-25 09:18] LABS: Albumin 2.4 G/DL (3.4-5.0); Bilirubin,Total 2.6 MG/DL (0.2-1.0); Calcium 9.7 MG/DL (8.5-10.1); Osmolality,Calculated 307.1 MOS/KG (273-304); Potassium 4.7 MMOL/L (3.5-5.1); Total Protein 6.3 G/DL (6.4-8.3)
[2020-06-25 10:15] LABS: Allen Test Positive; Pt O2 Delivery Device Ventilator
[2020-06-25 10:16] LABS: ABG Base Excess 4.7 MMOL/L (-2.5-2.5); ABG HCO3 28.7 MMOL/L (20-26); ABG PCO2 43.3 MM HG (35-48); ABG TCO2 26.9 MMOL/L (23-27)
[2020-06-25] MEDS: MIDAZOLAM 100 MG in SODIUM CHLORIDE 0.9% 80 ML IV PRN (15:10)
[2020-06-25] MEDS: VANCOMYCIN INJ 1,250 MG in SODIUM CHLORIDE 0.9% 250 ML IV SCH (15:10)
[2020-06-25] MEDS: WARFARIN 2.5 MG TABLET PO SCH (18:26)
[2020-06-25] MEDS ORDERED: PHENYLEPHRINE DRIP 40 MG/250 ML PREMIX IV ONE (19:49)
[2020-06-25] MEDS: PHENYLEPHRINE DRIP 40 MG/250 ML PREMIX IV PRN ×2 (19:55→23:24)
[2020-06-25] MEDS: SIMVASTATIN 20 MG TABLET PO SCH (22:11)
[2020-06-26] MEDS: ALBUTEROL/IPRATROPIUM 3 ML NEB RESP TX SCH ×4 (00:40→20:07)
[2020-06-26] MEDS: PHENYLEPHRINE DRIP 40 MG/250 ML PREMIX IV PRN ×8 (02:01→23:25)
[2020-06-26] MEDS: DEXTROSE 5% 1,000 ML IV SCH ×2 (02:34→15:04)
[2020-06-26] MEDS: PIPERACILLIN/TAZOBACTAM 3,375 MG in SODIUM CHLORIDE 0.9% 100 ML IV SCH ×3 (03:00→18:15)
[2020-06-26 04:13] LABS: ABG Base Excess 6.9 MMOL/L (-2.5-2.5); ABG HCO3 29.8 MMOL/L (20-26); ABG Oxygen Saturation 99.1 % (95-100); ABG PCO2 36.2 MM HG (35-48); ABG PH 7.534 (7.35-7.45); ABG PO2 199.7 MM HG (80-95); Allen Test Positive; Pt O2 Delivery Device Ventilator
[2020-06-26 04:24] LABS: Calcium 8.9 MG/DL (8.5-10.1); Osmolality,Calculated 317.6 MOS/KG (273-304)
[2020-06-26 04:31] LABS: Basophils % 0.1 % (0.0-0.8); Eosinophils % 0.1 % (0.00-10.9); Hematocrit 33.2 VOL% (42.0-52.0); Immature Granulocytes % 0.7 %; Lymphocytes # 2.7 10*3/uL (1.4-4.0); Lymphocytes % 19.1 % (21.2-54.2); Mean Corpuscular HGB Conc 29.5 GM/DL (32-36); Mean Corpuscular Volume 86.9 FL (87-102); Mean Platelet Volume 11.8 FL (9.6-12.0); Monocytes % 2.2 % (1.7-12.7); Neutrophils % 77.8 % (38.7-73.9); Red Blood Count 3.82 MC/CUMM (3.8-5.5); Red Cell Distribution Width 26.8 % (9.3-17.3); White Blood Count 14.3 T/CUMM (4-12)
[2020-06-26 04:36] LABS: Hemoglobin 9.8 GM/DL (14.0-18.0); Platelet Count 86 T/CUMM (130-400)
[2020-06-26 04:38] LABS: Band Neutrophils 1 % (0-10); Hypochromasia 1+; Lymphocytes 16 % (20-55); Nucleated Red Blood Cells 1 (0-5); Ovalocytes Slight; Platelet Estimate Decreased; Segmented Neutrophils 78 % (50-85); Total Cells Counted 100
[2020-06-26 04:39] LABS: Macrocytosis Slight
[2020-06-26] MEDS: POTASSIUM CHLORIDE 20 MEQ/15 ML UDCUP PO PRN ×4 (05:03→14:55)
[2020-06-26] MEDS: MULTIVITAMIN LIQUID (CENTRUM) 60 ML BOTTLE PO SCH (08:25)
[2020-06-26] MEDS: gemfibroziL 600 MG TABLET PO SCH ×2 (08:26→20:11)
[2020-06-26] MEDS: MEMANTINE 10 MG TABLET PO SCH ×2 (08:26→20:11)
[2020-06-26] MEDS: ASCORBIC ACID 500 MG TABLET PO SCH ×2 (08:26→20:11)
[2020-06-26] MEDS: PANTOPRAZOLE 40 MG VIAL IV SCH (08:26)
[2020-06-26] MEDS: carvediloL 3.125 MG TABLET PO SCH ×2 (08:26→20:15)
[2020-06-26] MEDS: ASPIRIN EC 81 MG TABLET PO SCH (08:26)
[2020-06-26] MEDS: DESITIN 4OZ/NYSTATIN 15 GRAM MIXTURE PASTE TOP SCH ×2 (09:15→20:15)
[2020-06-26] MEDS: SERTRALINE 100 MG TABLET PO SCH (09:16)
[2020-06-26] MEDS: FUROSEMIDE 40 MG/4 ML VIAL IV SCH (11:12)
[2020-06-26] MEDS: WARFARIN 2.5 MG TABLET PO SCH (17:04)
[2020-06-26] MEDS: SIMVASTATIN 20 MG TABLET PO SCH (20:11)
[2020-06-27] MEDS: ALBUTEROL/IPRATROPIUM 3 ML NEB RESP TX SCH ×4 (01:21→19:10)
[2020-06-27] MEDS: DEXTROSE 5% 1,000 ML IV SCH ×2 (02:40→15:09)
[2020-06-27 03:06] LABS: Basophils % 0.1 % (0.0-0.8); Eosinophils % 0.3 % (0.00-10.9); Hematocrit 30.7 VOL% (42.0-52.0); Immature Granulocytes % 0.4 %; Immature Granulocytes Absolute 0.04 #; Lymphocytes # 2.6 10*3/uL (1.4-4.0); Lymphocytes % 26.2 % (21.2-54.2); Mean Corpuscular HGB Conc 29.3 GM/DL (32-36); Mean Corpuscular Volume 87.7 FL (87-102); Monocytes % 1.3 % (1.7-12.7); NRBC # 0.08 10*3/uL; Neutrophils % 71.7 % (38.7-73.9); Red Cell Distribution Width 27.2 % (9.3-17.3); White Blood Count 9.9 T/CUMM (4-12)
[2020-06-27 03:12] LABS: ABG Base Excess 7.1 MMOL/L (-2.5-2.5); ABG HCO3 30.8 MMOL/L (20-26); ABG Oxygen Saturation 91.8 % (95-100); ABG PCO2 42.8 MM HG (35-48); ABG PH 7.474 (7.35-7.45); ABG TCO2 28.9 MMOL/L (23-27)
[2020-06-27 03:15] LABS: Platelet Count 90 T/CUMM (130-400)
[2020-06-27 03:29] LABS: Calcium 8.4 MG/DL (8.5-10.1); Osmolality,Calculated 308.9 MOS/KG (273-304); Potassium 3.2 MMOL/L (3.5-5.1)
[2020-06-27 03:44] LABS: Band Neutrophils 2 % (0-10); Hypochromasia 1+; Lymphocytes 22 % (20-55); Microcytosis 1+; Ovalocytes Slight; Platelet Estimate Decreased; Segmented Neutrophils 74 % (50-85); Total Cells Counted 100
[2020-06-27 03:45] LABS: Atypical Lymphocytes Few
[2020-06-27] MEDS: PIPERACILLIN/TAZOBACTAM 3,375 MG in SODIUM CHLORIDE 0.9% 100 ML IV SCH ×3 (05:20→19:05)
[2020-06-27] MEDS ORDERED: MAGNESIUM SULF RIDER 4 GM in PREMIX 1 EACH IV PRN (05:26)
[2020-06-27] MEDS ORDERED: MAGNESIUM SULF RIDER 2 GM in PREMIX 1 EACH IV PRN (05:26)
[2020-06-27] MEDS: PHENYLEPHRINE DRIP 40 MG/250 ML PREMIX IV PRN ×6 (05:30→23:31)
[2020-06-27] MEDS: POTASSIUM CHLORIDE 20 MEQ/15 ML UDCUP PO PRN ×3 (05:38→17:55)
[2020-06-27] MEDS: MIDAZOLAM 100 MG in SODIUM CHLORIDE 0.9% 80 ML IV PRN (05:44)
[2020-06-27] MEDS ORDERED: POTASSIUM PHOSPHATE 30 MMOL in SODIUM CHLORIDE 0.9% 250 ML IV ONE (10:00)
[2020-06-27] MEDS: MULTIVITAMIN LIQUID (CENTRUM) 60 ML BOTTLE PO SCH (11:14)
[2020-06-27] MEDS: ASPIRIN CHEW 81 MG TABLET PO SCH (11:16)
[2020-06-27] MEDS: ASCORBIC ACID 500 MG TABLET PO SCH ×2 (11:16→21:58)
[2020-06-27] MEDS: DESITIN 4OZ/NYSTATIN 15 GRAM MIXTURE PASTE TOP SCH ×2 (11:16→21:59)
[2020-06-27] MEDS: MEMANTINE 10 MG TABLET PO SCH ×2 (11:17→21:59)
[2020-06-27] MEDS: carvediloL 3.125 MG TABLET PO SCH ×2 (11:17→21:59)
[2020-06-27] MEDS: FUROSEMIDE 40 MG/4 ML VIAL IV SCH (11:18)
[2020-06-27] MEDS: PANTOPRAZOLE 40 MG VIAL IV SCH (11:22)
[2020-06-27] MEDS: gemfibroziL 600 MG TABLET PO SCH ×2 (11:26→21:58)
[2020-06-27] MEDS: SERTRALINE 100 MG TABLET PO SCH (11:26)
[2020-06-27] MEDS ORDERED: SODIUM CHLORIDE 0.45% 1,000 ML IV SCH (14:00)
[2020-06-27] MEDS: VANCOMYCIN INJ 1,250 MG in SODIUM CHLORIDE 0.9% 250 ML IV SCH (15:16)
[2020-06-27] MEDS: methylPREDNISolone SOD SUC 40 MG/1 ML VIAL IV SCH ×2 (16:23→21:59)
[2020-06-27] MEDS: ALBUMIN 25% 25 GM in PREMIX 1 EACH IV SCH ×2 (16:25→22:09)
[2020-06-27] MEDS: WARFARIN 2.5 MG TABLET PO SCH (17:55)
[2020-06-27] MEDS: SIMVASTATIN 20 MG TABLET PO SCH (21:59)
[2020-06-28] MEDS: DEXTROSE 5% 1,000 ML IV SCH ×2 (00:03→04:39)
[2020-06-28] MEDS: ALBUTEROL/IPRATROPIUM 3 ML NEB RESP TX SCH ×4 (01:05→19:29)
[2020-06-28] MEDS: PHENYLEPHRINE DRIP 40 MG/250 ML PREMIX IV PRN ×4 (02:48→16:44)
[2020-06-28] MEDS: PIPERACILLIN/TAZOBACTAM 3,375 MG in SODIUM CHLORIDE 0.9% 100 ML IV SCH ×3 (03:40→18:05)
[2020-06-28 04:47] LABS: ABG Base Excess 2.6 MMOL/L (-2.5-2.5); ABG HCO3 26.3 MMOL/L (20-26); ABG PCO2 50.1 MM HG (35-48); ABG PH 7.365 (7.35-7.45); ABG PO2 47.9 MM HG (80-95); ABG TCO2 26.4 MMOL/L (23-27); Allen Test Positive; Pt O2 Delivery Device Ventilator
[2020-06-28] MEDS: methylPREDNISolone SOD SUC 40 MG/1 ML VIAL IV SCH ×3 (05:53→21:59)
[2020-06-28] MEDS: ALBUMIN 25% 25 GM in PREMIX 1 EACH IV SCH (05:53)
[2020-06-28 07:18] LABS: Basophils % 0.1 % (0.0-0.8); Hematocrit 33.1 VOL% (42.0-52.0); Immature Granulocytes % 0.5 %; Immature Granulocytes Absolute 0.04 #; Lymphocytes # 1.4 10*3/uL (1.4-4.0); Lymphocytes % 17.2 % (21.2-54.2); Mean Corpuscular Volume 87.8 FL (87-102); Monocytes % 1.9 % (1.7-12.7); NRBC # 0.06 10*3/uL; Neutrophils % 80.3 % (38.7-73.9); Red Blood Count 3.77 MC/CUMM (3.8-5.5); Red Cell Distribution Width 27.4 % (9.3-17.3); White Blood Count 8.1 T/CUMM (4-12)
[2020-06-28 07:24] LABS: Hemoglobin 9.6 GM/DL (14.0-18.0); Platelet Count 81 T/CUMM (130-400)
[2020-06-28 07:26] LABS: Hypochromasia 1+; Lymphocytes 22 % (20-55); Microcytosis 1+; Ovalocytes Slight; Platelet Estimate Decreased; Segmented Neutrophils 77 % (50-85); Total Cells Counted 100
[2020-06-28 07:27] LABS: Atypical Lymphocytes Few
[2020-06-28 08:21] LABS: Calcium 8.4 MG/DL (8.5-10.1); Osmolality,Calculated 303.7 MOS/KG (273-304); Potassium 3.5 MMOL/L (3.5-5.1)
[2020-06-28] MEDS: carvediloL 3.125 MG TABLET PO SCH ×2 (08:57→21:58)
[2020-06-28] MEDS: gemfibroziL 600 MG TABLET PO SCH ×2 (08:57→21:58)
[2020-06-28] MEDS: PANTOPRAZOLE 40 MG VIAL IV SCH (08:57)
[2020-06-28] MEDS: MEMANTINE 10 MG TABLET PO SCH ×2 (08:57→21:58)
[2020-06-28] MEDS: MULTIVITAMIN LIQUID (CENTRUM) 60 ML BOTTLE PO SCH (08:57)
[2020-06-28] MEDS: ASPIRIN CHEW 81 MG TABLET PO SCH (08:57)
[2020-06-28] MEDS: DESITIN 4OZ/NYSTATIN 15 GRAM MIXTURE PASTE TOP SCH ×2 (08:58→21:59)
[2020-06-28] MEDS: SERTRALINE 100 MG TABLET PO SCH (08:58)
[2020-06-28] MEDS: ASCORBIC ACID 500 MG TABLET PO SCH ×2 (08:58→21:58)
[2020-06-28] MEDS: POTASSIUM CHLORIDE 20 MEQ/15 ML UDCUP PO PRN ×2 (09:07→11:31)
[2020-06-28] MEDS: FUROSEMIDE 40 MG/4 ML VIAL IV SCH (10:51)
[2020-06-28] MEDS ORDERED: GLUCAGON 1 MG VIAL IM PRN (12:48)
[2020-06-28] MEDS ORDERED: DEXTROSE 50% 25 GM/50 ML VIAL IV PRN (12:48)
[2020-06-28] MEDS: INSULIN LISPRO 100 UNIT/ML SUBCUT SCH ×2 (13:24→17:32)
[2020-06-28] MEDS: VANCOMYCIN INJ 1,250 MG in SODIUM CHLORIDE 0.9% 250 ML IV SCH (15:03)
[2020-06-28] MEDS: WARFARIN 2.5 MG TABLET PO SCH (17:33)
[2020-06-28] MEDS: SIMVASTATIN 20 MG TABLET PO SCH (21:58)
[2020-06-29] MEDS: ALBUTEROL/IPRATROPIUM 3 ML NEB RESP TX SCH ×4 (00:05→20:00)
[2020-06-29] MEDS: INSULIN LISPRO 100 UNIT/ML SUBCUT SCH ×4 (00:54→19:50)
[2020-06-29] MEDS: MIDAZOLAM 100 MG in SODIUM CHLORIDE 0.9% 80 ML IV PRN ×2 (02:45→19:55)
[2020-06-29] MEDS: PIPERACILLIN/TAZOBACTAM 3,375 MG in SODIUM CHLORIDE 0.9% 100 ML IV SCH ×3 (03:09→19:51)
[2020-06-29 04:10] LABS: Basophils % 0.1 % (0.0-0.8); Hemoglobin 9.2 GM/DL (14.0-18.0); Immature Granulocytes % 0.6 %; Immature Granulocytes Absolute 0.07 #; Lymphocytes # 1.4 10*3/uL (1.4-4.0); Lymphocytes % 11.5 % (21.2-54.2); Mean Corpuscular HGB Conc 29.7 GM/DL (32-36); Mean Corpuscular Volume 86.6 FL (87-102); Monocytes % 1.9 % (1.7-12.7); NRBC # 0.06 10*3/uL; Neutrophils % 85.9 % (38.7-73.9); Red Blood Count 3.58 MC/CUMM (3.8-5.5); White Blood Count 11.8 T/CUMM (4-12)
[2020-06-29 04:15] LABS: Platelet Count 79 T/CUMM (130-400)
[2020-06-29 04:29] LABS: Lymphocytes 8 % (20-55); Platelet Estimate Decreased; Segmented Neutrophils 90 % (50-85); Total Cells Counted 100
[2020-06-29 04:32] LABS: Albumin 1.8 G/DL (3.4-5.0); Bilirubin,Total 1.5 MG/DL (0.2-1.0); Calcium 8.3 MG/DL (8.5-10.1); Osmolality,Calculated 309.4 MOS/KG (273-304); Potassium 3.5 MMOL/L (3.5-5.1); Total Protein 4.6 G/DL (6.4-8.3)
[2020-06-29 04:33] LABS: Hypochromasia 1+; Microcytosis 1+
[2020-06-29 04:55] LABS: ABG HCO3 26.2 MMOL/L (20-26); ABG Oxygen Saturation 96.8 % (95-100); ABG PCO2 40.7 MM HG (35-48); ABG PH 7.423 (7.35-7.45); ABG PO2 87.7 MM HG (80-95); ABG TCO2 24.3 MMOL/L (23-27); Allen Test Positive; Pt O2 Delivery Device Ventilator
[2020-06-29 05:44] LABS: INR 1.9; PT Patient Result 19.7 SECS (9.8-11.9)
[2020-06-29] MEDS: methylPREDNISolone SOD SUC 40 MG/1 ML VIAL IV SCH ×3 (06:12→21:30)
[2020-06-29] MEDS: carvediloL 3.125 MG TABLET PO SCH ×2 (09:12→21:28)
[2020-06-29] MEDS: gemfibroziL 600 MG TABLET PO SCH ×2 (09:12→21:28)
[2020-06-29] MEDS: MEMANTINE 10 MG TABLET PO SCH ×2 (09:12→21:28)
[2020-06-29] MEDS: ASCORBIC ACID 500 MG TABLET PO SCH ×2 (09:12→21:29)
[2020-06-29] MEDS: ASPIRIN CHEW 81 MG TABLET PO SCH (09:12)
[2020-06-29] MEDS: SERTRALINE 100 MG TABLET PO SCH (09:12)
[2020-06-29] MEDS: FUROSEMIDE 40 MG/4 ML VIAL IV SCH (09:13)
[2020-06-29] MEDS: PANTOPRAZOLE 40 MG VIAL IV SCH (09:14)
[2020-06-29] MEDS: DESITIN 4OZ/NYSTATIN 15 GRAM MIXTURE PASTE TOP SCH ×2 (09:15→21:28)
[2020-06-29] MEDS: MULTIVITAMIN LIQUID (CENTRUM) 60 ML BOTTLE PO SCH (09:18)
[2020-06-29] MEDS: INSULIN GLARGINE 100 UNIT/ML SUBCUT SCH (12:13)
[2020-06-29] MEDS: METOCLOPRAMIDE 10 MG/2 ML VIAL IV SCH ×2 (12:13→19:50)
[2020-06-29] MEDS: VANCOMYCIN INJ 1,250 MG in SODIUM CHLORIDE 0.9% 250 ML IV SCH (13:35)
[2020-06-29] MEDS: WARFARIN 2.5 MG TABLET PO SCH (19:50)
[2020-06-29] MEDS: SIMVASTATIN 20 MG TABLET PO SCH (21:29)
[2020-06-30] MEDS: INSULIN LISPRO 100 UNIT/ML SUBCUT SCH ×4 (00:13→18:39)
[2020-06-30] MEDS: METOCLOPRAMIDE 10 MG/2 ML VIAL IV SCH ×4 (00:13→18:39)
[2020-06-30] MEDS: ALBUTEROL/IPRATROPIUM 3 ML NEB RESP TX SCH ×5 (01:38→20:28)
[2020-06-30] MEDS: PIPERACILLIN/TAZOBACTAM 3,375 MG in SODIUM CHLORIDE 0.9% 100 ML IV SCH ×3 (02:40→19:00)
[2020-06-30 03:38] LABS: ABG Base Excess 1.2 MMOL/L (-2.5-2.5); ABG HCO3 25.5 MMOL/L (20-26); ABG PCO2 42.4 MM HG (35-48); ABG PH 7.399 (7.35-7.45); ABG PO2 91.1 MM HG (80-95); Allen Test Positive; Pt O2 Delivery Device Ventilator
[2020-06-30 04:50] LABS: Albumin 1.7 G/DL (3.4-5.0); Basophils % 0.1 % (0.0-0.8); Calcium 8.7 MG/DL (8.5-10.1); Hematocrit 31.5 VOL% (42.0-52.0); Immature Granulocytes % 0.4 %; Immature Granulocytes Absolute 0.06 #; Lymphocytes # 1.2 10*3/uL (1.4-4.0); Lymphocytes % 8.8 % (21.2-54.2); Mean Corpuscular HGB Conc 29.2 GM/DL (32-36); Mean Corpuscular Volume 87.7 FL (87-102); Monocytes % 1.9 % (1.7-12.7); NRBC # 0.04 10*3/uL; Neutrophils % 88.8 % (38.7-73.9); Osmolality,Calculated 311.4 MOS/KG (273-304); Potassium 3.5 MMOL/L (3.5-5.1); Red Blood Count 3.59 MC/CUMM (3.8-5.5); Red Cell Distribution Width 27.1 % (9.3-17.3); Total Protein 4.6 G/DL (6.4-8.3); White Blood Count 13.6 T/CUMM (4-12)
[2020-06-30 04:54] LABS: Hemoglobin 9.2 GM/DL (14.0-18.0); Platelet Count 78 T/CUMM (130-400)
[2020-06-30 04:57] LABS: Lymphocytes 3 % (20-55); Platelet Estimate Decreased; Segmented Neutrophils 96 % (50-85); Total Cells Counted 100
[2020-06-30 04:58] LABS: Hypochromasia 1+; Microcytosis 1+
[2020-06-30] MEDS: methylPREDNISolone SOD SUC 40 MG/1 ML VIAL IV SCH ×3 (06:30→22:00)
[2020-06-30] MEDS: POTASSIUM CHLORIDE 20 MEQ/15 ML UDCUP PO PRN (06:46)
[2020-06-30] MEDS: ASCORBIC ACID 500 MG TABLET PO SCH ×2 (08:55→21:16)
[2020-06-30] MEDS: carvediloL 3.125 MG TABLET PO SCH ×2 (08:56→21:16)
[2020-06-30] MEDS: gemfibroziL 600 MG TABLET PO SCH ×2 (08:56→21:16)
[2020-06-30] MEDS: PANTOPRAZOLE 40 MG VIAL IV SCH (08:56)
[2020-06-30] MEDS: ASPIRIN CHEW 81 MG TABLET PO SCH (08:56)
[2020-06-30] MEDS: SERTRALINE 100 MG TABLET PO SCH (08:56)
[2020-06-30] MEDS: FUROSEMIDE 40 MG/4 ML VIAL IV SCH (08:57)
[2020-06-30] MEDS: DESITIN 4OZ/NYSTATIN 15 GRAM MIXTURE PASTE TOP SCH ×2 (09:03→21:16)
[2020-06-30] MEDS: MEMANTINE 10 MG TABLET PO SCH ×2 (09:03→21:16)
[2020-06-30] MEDS: INSULIN GLARGINE 100 UNIT/ML SUBCUT SCH (09:09)
[2020-06-30] MEDS: MULTIVITAMIN LIQUID (CENTRUM) 60 ML BOTTLE PO SCH (11:08)
[2020-06-30] MEDS: MIDAZOLAM 100 MG in SODIUM CHLORIDE 0.9% 80 ML IV PRN (12:01)
[2020-06-30] MEDS: ALBUMIN 25% 25 GM in PREMIX 1 EACH IV SCH ×2 (12:28→21:10)
[2020-06-30] MEDS: VANCOMYCIN INJ 1,250 MG in SODIUM CHLORIDE 0.9% 250 ML IV SCH (13:30)
[2020-06-30] MEDS: WARFARIN 2.5 MG TABLET PO SCH (18:39)
[2020-06-30] MEDS: SIMVASTATIN 20 MG TABLET PO SCH (21:17)
[2020-07-01] MEDS: INSULIN LISPRO 100 UNIT/ML SUBCUT SCH ×5 (00:10→23:45)
[2020-07-01] MEDS: METOCLOPRAMIDE 10 MG/2 ML VIAL IV SCH ×5 (00:10→23:45)
[2020-07-01] MEDS: ALBUTEROL/IPRATROPIUM 3 ML NEB RESP TX SCH ×4 (01:52→19:09)
[2020-07-01 03:31] LABS: ABG Base Excess 1.4 MMOL/L (-2.5-2.5); ABG HCO3 25.5 MMOL/L (20-26); ABG Oxygen Saturation 82.6 % (95-100); ABG PCO2 43.7 MM HG (35-48); ABG PH 7.393 (7.35-7.45); ABG PO2 52.4 MM HG (80-95); ABG TCO2 24.6 MMOL/L (23-27); Allen Test Positive; Pt O2 Delivery Device Ventilator
[2020-07-01] MEDS: ALBUMIN 25% 25 GM in PREMIX 1 EACH IV SCH (04:31)
[2020-07-01 05:12] LABS: Basophils % 0.1 % (0.0-0.8); Hematocrit 30.8 VOL% (42.0-52.0); Hemoglobin 9.2 GM/DL (14.0-18.0); Immature Granulocytes % 0.5 %; Immature Granulocytes Absolute 0.07 #; Lymphocytes % 7.4 % (21.2-54.2); Mean Corpuscular HGB Conc 29.9 GM/DL (32-36); Mean Corpuscular Volume 85.8 FL (87-102); Monocytes % 1.8 % (1.7-12.7); NRBC # 0.02 10*3/uL; Neutrophils % 90.2 % (38.7-73.9); Platelet Count 65 T/CUMM (130-400); Red Blood Count 3.59 MC/CUMM (3.8-5.5)
[2020-07-01 05:40] LABS: Calcium 8.9 MG/DL (8.5-10.1); Osmolality,Calculated 305.8 MOS/KG (273-304); Potassium 3.7 MMOL/L (3.5-5.1)
[2020-07-01] MEDS: methylPREDNISolone SOD SUC 40 MG/1 ML VIAL IV SCH ×3 (05:50→21:30)
[2020-07-01 07:25] LABS: Band Neutrophils 1 % (0-10); Lymphocytes 4 % (20-55); Segmented Neutrophils 89 % (50-85); Total Cells Counted 100
[2020-07-01 07:26] LABS: Hypochromasia 3+; Platelet Estimate Decreased; Polychromasia Slight
[2020-07-01] MEDS: POTASSIUM CHLORIDE 20 MEQ/15 ML UDCUP PO PRN (08:07)
[2020-07-01] MEDS: INSULIN GLARGINE 100 UNIT/ML SUBCUT SCH (08:08)
[2020-07-01] MEDS: FUROSEMIDE 40 MG/4 ML VIAL IV SCH (08:08)
[2020-07-01] MEDS: PANTOPRAZOLE 40 MG VIAL IV SCH (08:08)
[2020-07-01] MEDS: gemfibroziL 600 MG TABLET PO SCH ×2 (08:09→21:32)
[2020-07-01] MEDS: ASCORBIC ACID 500 MG TABLET PO SCH ×2 (08:09→21:31)
[2020-07-01] MEDS: carvediloL 3.125 MG TABLET PO SCH ×2 (08:09→21:32)
[2020-07-01] MEDS: SERTRALINE 100 MG TABLET PO SCH (08:09)
[2020-07-01] MEDS: MEMANTINE 10 MG TABLET PO SCH ×2 (08:09→21:32)
[2020-07-01] MEDS: ASPIRIN CHEW 81 MG TABLET PO SCH (08:09)
[2020-07-01] MEDS: DESITIN 4OZ/NYSTATIN 15 GRAM MIXTURE PASTE TOP SCH ×2 (08:10→21:32)
[2020-07-01] MEDS: MULTIVITAMIN LIQUID (CENTRUM) 60 ML BOTTLE PO SCH (08:11)
[2020-07-01] MEDS ORDERED: FUROSEMIDE 40 MG/4 ML VIAL IV SCH (12:09)
[2020-07-01] MEDS: VANCOMYCIN INJ 1,250 MG in SODIUM CHLORIDE 0.9% 250 ML IV SCH (12:23)
[2020-07-01] MEDS: FLUCONAZOLE INJ 400 MG in PREMIX 1 EACH IV SCH (14:16)
[2020-07-01] MEDS: WARFARIN 2.5 MG TABLET PO SCH (17:18)
[2020-07-01] MEDS: MIDAZOLAM 100 MG in SODIUM CHLORIDE 0.9% 80 ML IV PRN (20:35)
[2020-07-01] MEDS: SIMVASTATIN 20 MG TABLET PO SCH (21:32)
[2020-07-02] MEDS: ALBUTEROL/IPRATROPIUM 3 ML NEB RESP TX SCH ×4 (00:34→19:16)
[2020-07-02 04:36] LABS: ABG Base Excess 1.4 MMOL/L (-2.5-2.5); ABG HCO3 25.7 MMOL/L (20-26); ABG Oxygen Saturation 95.9 % (95-100); ABG PCO2 41.4 MM HG (35-48); ABG PH 7.409 (7.35-7.45); ABG PO2 82.7 MM HG (80-95); ABG TCO2 24.1 MMOL/L (23-27); Allen Test Positive; Pt O2 Delivery Device Ventilator
[2020-07-02 06:14] LABS: Hematocrit 30.6 VOL% (42.0-52.0); Hemoglobin 9.1 GM/DL (14.0-18.0); Immature Granulocytes % 0.5 %; Immature Granulocytes Absolute 0.06 #; Lymphocytes # 0.8 10*3/uL (1.4-4.0); Mean Corpuscular HGB Conc 29.7 GM/DL (32-36); Mean Corpuscular Volume 86.2 FL (87-102); Monocytes % 1.5 % (1.7-12.7); NRBC # 0.02 10*3/uL; Platelet Count 78 T/CUMM (130-400); Red Blood Count 3.55 MC/CUMM (3.8-5.5); Red Cell Distribution Width 27.3 % (9.3-17.3); White Blood Count 10.9 T/CUMM (4-12)
[2020-07-02] MEDS: METOCLOPRAMIDE 10 MG/2 ML VIAL IV SCH ×3 (06:18→18:01)
[2020-07-02] MEDS: INSULIN LISPRO 100 UNIT/ML SUBCUT SCH ×3 (06:18→18:01)
[2020-07-02] MEDS: methylPREDNISolone SOD SUC 40 MG/1 ML VIAL IV SCH ×3 (06:18→22:04)
[2020-07-02 06:35] LABS: Potassium 3.8 MMOL/L (3.5-5.1)
[2020-07-02 08:07] LABS: Band Neutrophils 10 % (0-10); Lymphocytes 7 % (20-55); Segmented Neutrophils 83 % (50-85); Total Cells Counted 100
[2020-07-02 08:08] LABS: Anisocytosis 2+; Platelet Estimate Decreased
[2020-07-02 08:10] LABS: Macrocytosis 1+; Ovalocytes Few; Tear Drop Cells Few
[2020-07-02] MEDS: ASCORBIC ACID 500 MG TABLET PO SCH ×2 (09:16→20:16)
[2020-07-02] MEDS: MULTIVITAMIN LIQUID (CENTRUM) 60 ML BOTTLE PO SCH (09:16)
[2020-07-02] MEDS: MEMANTINE 10 MG TABLET PO SCH ×2 (09:16→20:16)
[2020-07-02] MEDS: SERTRALINE 100 MG TABLET PO SCH (09:16)
[2020-07-02] MEDS: carvediloL 3.125 MG TABLET PO SCH ×2 (09:16→20:15)
[2020-07-02] MEDS: ASPIRIN CHEW 81 MG TABLET PO SCH (09:16)
[2020-07-02] MEDS: gemfibroziL 600 MG TABLET PO SCH ×2 (09:16→20:16)
[2020-07-02] MEDS: PANTOPRAZOLE 40 MG VIAL IV SCH (09:17)
[2020-07-02] MEDS: INSULIN GLARGINE 100 UNIT/ML SUBCUT SCH (09:18)
[2020-07-02] MEDS: DESITIN 4OZ/NYSTATIN 15 GRAM MIXTURE PASTE TOP SCH ×2 (09:31→20:16)
[2020-07-02 12:11] LABS: ABG Base Excess 0.6 MMOL/L (-2.5-2.5); ABG HCO3 24.9 MMOL/L (20-26); ABG Oxygen Saturation 91.4 % (95-100); ABG PCO2 42.9 MM HG (35-48); ABG PH 7.387 (7.35-7.45); ABG PO2 67.3 MM HG (80-95); ABG TCO2 23.7 MMOL/L (23-27)
[2020-07-02] MEDS ORDERED: FUROSEMIDE 40 MG/4 ML VIAL IV SCH (13:30)
[2020-07-02] MEDS: FUROSEMIDE 40 MG/4 ML VIAL IV SCH ×2 (13:52→20:35)
[2020-07-02] MEDS: FLUCONAZOLE INJ 400 MG in PREMIX 1 EACH IV SCH (14:20)
[2020-07-02] MEDS: WARFARIN 2.5 MG TABLET PO SCH (18:01)
[2020-07-02] MEDS ORDERED: NOREPINEPHRINE 4 MG/4 ML VIAL IV ONE (18:34)
[2020-07-02] MEDS: MIDAZOLAM 100 MG in SODIUM CHLORIDE 0.9% 80 ML IV PRN (20:15)
[2020-07-02] MEDS: SIMVASTATIN 20 MG TABLET PO SCH (20:16)
[2020-07-03] MEDS: METOCLOPRAMIDE 10 MG/2 ML VIAL IV SCH ×4 (00:48→18:15)
[2020-07-03] MEDS: INSULIN LISPRO 100 UNIT/ML SUBCUT SCH ×4 (00:48→18:14)
[2020-07-03] MEDS: ALBUTEROL/IPRATROPIUM 3 ML NEB RESP TX SCH ×4 (01:01→20:11)
[2020-07-03 04:31] LABS: ABG Base Excess 2.2 MMOL/L (-2.5-2.5); ABG HCO3 26.4 MMOL/L (20-26); ABG Oxygen Saturation 97.3 % (95-100); ABG PH 7.386 (7.35-7.45); ABG TCO2 25.5 MMOL/L (23-27); Allen Test Positive; Pt O2 Delivery Device Ventilator
[2020-07-03] MEDS: FUROSEMIDE 40 MG/4 ML VIAL IV SCH ×3 (05:50→20:41)
[2020-07-03] MEDS: methylPREDNISolone SOD SUC 40 MG/1 ML VIAL IV SCH ×3 (05:51→22:33)
[2020-07-03 05:58] LABS: Hematocrit 28.4 VOL% (42.0-52.0); Hemoglobin 8.3 GM/DL (14.0-18.0); Immature Granulocytes % 0.5 %; Immature Granulocytes Absolute 0.04 #; Lymphocytes # 0.8 10*3/uL (1.4-4.0); Lymphocytes % 9.6 % (21.2-54.2); Mean Corpuscular HGB Conc 29.2 GM/DL (32-36); Mean Corpuscular Volume 87.9 FL (87-102); Monocytes % 1.8 % (1.7-12.7); Neutrophils % 88.1 % (38.7-73.9); Platelet Count 79 T/CUMM (130-400); Red Blood Count 3.23 MC/CUMM (3.8-5.5); Red Cell Distribution Width 27.5 % (9.3-17.3); White Blood Count 7.8 T/CUMM (4-12)
[2020-07-03 06:30] LABS: Albumin 1.6 G/DL (3.4-5.0); Bilirubin,Total 1.9 MG/DL (0.2-1.0); Calcium 8.4 MG/DL (8.5-10.1); Osmolality,Calculated 315.8 MOS/KG (273-304); Potassium 3.8 MMOL/L (3.5-5.1); Total Protein 4.2 G/DL (6.4-8.3)
[2020-07-03 07:03] LABS: Platelet Estimate Decreased
[2020-07-03 07:04] LABS: Anisocytosis 3+; Basophilic Stippling Slight; Hypochromasia Slight; Ovalocytes Few; Target Cells 1+
[2020-07-03] MEDS: MEMANTINE 10 MG TABLET PO SCH ×2 (08:07→20:44)
[2020-07-03] MEDS: POTASSIUM CHLORIDE 20 MEQ/15 ML UDCUP PO PRN (08:07)
[2020-07-03] MEDS: INSULIN GLARGINE 100 UNIT/ML SUBCUT SCH (08:07)
[2020-07-03] MEDS: ASCORBIC ACID 500 MG TABLET PO SCH ×2 (08:07→20:43)
[2020-07-03] MEDS: gemfibroziL 600 MG TABLET PO SCH ×2 (08:07→20:44)
[2020-07-03] MEDS: ASPIRIN CHEW 81 MG TABLET PO SCH (08:07)
[2020-07-03] MEDS: SERTRALINE 100 MG TABLET PO SCH (08:08)
[2020-07-03] MEDS: MULTIVITAMIN LIQUID (CENTRUM) 60 ML BOTTLE PO SCH (08:08)
[2020-07-03] MEDS: PANTOPRAZOLE 40 MG VIAL IV SCH (08:08)
[2020-07-03] MEDS: carvediloL 3.125 MG TABLET PO SCH ×2 (08:08→20:44)
[2020-07-03] MEDS: DESITIN 4OZ/NYSTATIN 15 GRAM MIXTURE PASTE TOP SCH ×2 (08:09→20:56)
[2020-07-03 11:04] LABS: INR 3.6; PT Patient Result 36.3 SECS (9.8-11.9)
[2020-07-03] MEDS: ALBUMIN 25% 25 GM in PREMIX 1 EACH IV SCH ×2 (12:13→22:32)
[2020-07-03] MEDS: FLUCONAZOLE INJ 400 MG in PREMIX 1 EACH IV SCH (14:28)
[2020-07-03] MEDS: SIMVASTATIN 20 MG TABLET PO SCH (20:44)
[2020-07-03] MEDS: MIDAZOLAM 100 MG in SODIUM CHLORIDE 0.9% 80 ML IV PRN (23:45)
[2020-07-04] MEDS: INSULIN LISPRO 100 UNIT/ML SUBCUT SCH ×5 (00:41→23:48)
[2020-07-04] MEDS: METOCLOPRAMIDE 10 MG/2 ML VIAL IV SCH ×5 (00:42→23:48)
[2020-07-04] MEDS: ALBUTEROL/IPRATROPIUM 3 ML NEB RESP TX SCH ×4 (00:50→19:31)
[2020-07-04 03:54] LABS: ABG HCO3 28.7 MMOL/L (20-26); ABG Oxygen Saturation 80.1 % (95-100); ABG PCO2 45.3 MM HG (35-48); ABG PH 7.428 (7.35-7.45); ABG PO2 48.6 MM HG (80-95); ABG TCO2 27.9 MMOL/L (23-27); Allen Test Positive
[2020-07-04 04:55] LABS: Hematocrit 27.9 VOL% (42.0-52.0); Hemoglobin 8.2 GM/DL (14.0-18.0); Immature Granulocytes % 0.5 %; Immature Granulocytes Absolute 0.04 #; Lymphocytes # 0.7 10*3/uL (1.4-4.0); Lymphocytes % 8.8 % (21.2-54.2); Mean Corpuscular HGB Conc 29.4 GM/DL (32-36); Mean Corpuscular Volume 86.6 FL (87-102); Monocytes % 1.6 % (1.7-12.7); Neutrophils % 89.1 % (38.7-73.9); Platelet Count 114 T/CUMM (130-400); Red Blood Count 3.22 MC/CUMM (3.8-5.5); Red Cell Distribution Width 27.1 % (9.3-17.3); White Blood Count 7.5 T/CUMM (4-12)
[2020-07-04 05:04] LABS: INR 3.3
[2020-07-04 05:05] LABS: PT Patient Result 33.7 SECS (9.8-11.9)
[2020-07-04 05:15] LABS: Hypochromasia 2+; Ovalocytes Slight; Platelet Estimate Decreased
[2020-07-04 05:15] LABS: ABG Base Excess 4.6 MMOL/L (-2.5-2.5); ABG HCO3 28.5 MMOL/L (20-26); ABG PCO2 43.4 MM HG (35-48); ABG PH 7.436 (7.35-7.45); ABG PO2 86.5 MM HG (80-95); ABG TCO2 27.2 MMOL/L (23-27)
[2020-07-04] MEDS: methylPREDNISolone SOD SUC 40 MG/1 ML VIAL IV SCH ×3 (06:09→22:11)
[2020-07-04] MEDS: FUROSEMIDE 40 MG/4 ML VIAL IV SCH (07:18)
[2020-07-04] MEDS: ASCORBIC ACID 500 MG TABLET PO SCH ×2 (08:01→20:21)
[2020-07-04] MEDS: carvediloL 3.125 MG TABLET PO SCH ×2 (08:01→20:21)
[2020-07-04] MEDS: gemfibroziL 600 MG TABLET PO SCH ×2 (08:01→20:21)
[2020-07-04] MEDS: MEMANTINE 10 MG TABLET PO SCH ×2 (08:01→20:21)
[2020-07-04] MEDS: ASPIRIN CHEW 81 MG TABLET PO SCH (08:01)
[2020-07-04] MEDS: MULTIVITAMIN LIQUID (CENTRUM) 60 ML BOTTLE PO SCH (08:01)
[2020-07-04] MEDS: SERTRALINE 100 MG TABLET PO SCH (08:01)
[2020-07-04] MEDS: INSULIN GLARGINE 100 UNIT/ML SUBCUT SCH (08:05)
[2020-07-04] MEDS: PANTOPRAZOLE 40 MG VIAL IV SCH (08:05)
[2020-07-04] MEDS: DESITIN 4OZ/NYSTATIN 15 GRAM MIXTURE PASTE TOP SCH ×2 (08:05→20:21)
[2020-07-04] MEDS: ALBUMIN 25% 25 GM in PREMIX 1 EACH IV SCH ×2 (11:39→22:11)
[2020-07-04] MEDS: FLUCONAZOLE INJ 400 MG in PREMIX 1 EACH IV SCH (13:47)
[2020-07-04] MEDS ORDERED: MIDAZOLAM 2 MG/2 ML VIAL IV ONE (17:25)
[2020-07-04] MEDS ORDERED: MIDAZOLAM 2 MG/2 ML VIAL ONE ×2 (17:27→17:28)
[2020-07-04] MEDS: SIMVASTATIN 20 MG TABLET PO SCH (20:21)
[2020-07-05] MEDS: ALBUTEROL/IPRATROPIUM 3 ML NEB RESP TX SCH ×4 (00:55→19:33)
[2020-07-05 03:51] LABS: ABG Base Excess 5.6 MMOL/L (-2.5-2.5); ABG HCO3 29.3 MMOL/L (20-26); ABG Oxygen Saturation 95.1 % (95-100); ABG PCO2 39.3 MM HG (35-48); ABG PH 7.491 (7.35-7.45); ABG PO2 77.6 MM HG (80-95); ABG TCO2 30.6 MMOL/L (23-27); Allen Test Positive; Pt O2 Delivery Device Ventilator
[2020-07-05] MEDS: MIDAZOLAM 100 MG in SODIUM CHLORIDE 0.9% 80 ML IV PRN (05:00)
[2020-07-05 06:15] LABS: Hematocrit 23.2 VOL% (42.0-52.0); Hemoglobin 6.9 GM/DL (14.0-18.0); Immature Granulocytes % 0.4 %; Immature Granulocytes Absolute 0.03 #; Lymphocytes # 0.8 10*3/uL (1.4-4.0); Mean Corpuscular HGB Conc 29.7 GM/DL (32-36); Mean Corpuscular Volume 86.9 FL (87-102); Monocytes % 2.9 % (1.7-12.7); NRBC # 0.02 10*3/uL; Neutrophils % 84.7 % (38.7-73.9); Platelet Count 119 T/CUMM (130-400); Red Blood Count 2.67 MC/CUMM (3.8-5.5); Red Cell Distribution Width 27.4 % (9.3-17.3); White Blood Count 6.8 T/CUMM (4-12)
[2020-07-05 06:33] LABS: Calcium 8.4 MG/DL (8.5-10.1); Osmolality,Calculated 319.7 MOS/KG (273-304); Potassium 2.9 MMOL/L (3.5-5.1)
[2020-07-05 06:40] LABS: Hypochromasia 2+; Lymphocytes 10 % (20-55); Microcytosis 1+; Ovalocytes Slight; Segmented Neutrophils 90 % (50-85); Total Cells Counted 100
[2020-07-05] MEDS: METOCLOPRAMIDE 10 MG/2 ML VIAL IV SCH ×3 (06:53→17:14)
[2020-07-05] MEDS: POTASSIUM CHLORIDE 20 MEQ/15 ML UDCUP PO PRN (07:20)
[2020-07-05] MEDS: INSULIN LISPRO 100 UNIT/ML SUBCUT SCH ×3 (07:20→18:15)
[2020-07-05] MEDS: methylPREDNISolone SOD SUC 40 MG/1 ML VIAL IV SCH ×3 (07:21→21:49)
[2020-07-05] MEDS: carvediloL 3.125 MG TABLET PO SCH ×2 (08:08→20:36)
[2020-07-05] MEDS: ASPIRIN CHEW 81 MG TABLET PO SCH (08:08)
[2020-07-05] MEDS: DESITIN 4OZ/NYSTATIN 15 GRAM MIXTURE PASTE TOP SCH ×2 (08:11→21:50)
[2020-07-05] MEDS: PANTOPRAZOLE 40 MG VIAL IV SCH ×2 (08:12→21:49)
[2020-07-05] MEDS: MULTIVITAMIN LIQUID (CENTRUM) 60 ML BOTTLE PO SCH (08:44)
[2020-07-05] MEDS: MEMANTINE 10 MG TABLET PO SCH ×2 (08:44→20:38)
[2020-07-05] MEDS: SERTRALINE 100 MG TABLET PO SCH (08:44)
[2020-07-05] MEDS: gemfibroziL 600 MG TABLET PO SCH ×2 (08:44→20:38)
[2020-07-05] MEDS: ASCORBIC ACID 500 MG TABLET PO SCH ×2 (08:44→21:32)
[2020-07-05] MEDS: INSULIN GLARGINE 100 UNIT/ML SUBCUT SCH ×2 (08:45→10:08)
[2020-07-05] MEDS ORDERED: FUROSEMIDE 40 MG/4 ML VIAL IV SCH (09:00)
[2020-07-05] MEDS: FUROSEMIDE 40 MG/4 ML VIAL IV SCH ×3 (09:48→21:48)
[2020-07-05] MEDS: POTASSIUM CHLORIDE 20 MEQ/15 ML UDCUP PER TUBE SCH ×4 (10:11→21:49)
[2020-07-05] MEDS: ALBUMIN 25% 25 GM in PREMIX 1 EACH IV SCH ×2 (10:12→21:49)
[2020-07-05] MEDS ORDERED: FUROSEMIDE 40 MG/4 ML VIAL IV ONE (10:40)
[2020-07-05 12:37] LABS: Hematocrit 24.1 VOL% (42.0-52.0); Hemoglobin 7.3 GM/DL (14.0-18.0)
[2020-07-05 13:19] LABS: INR 2.4; PT Patient Result 24.9 SECS (9.8-11.9); Partial Thromboplastin Time 33.9 SECS (23.9-33.8)
[2020-07-05] MEDS ORDERED: SODIUM CHLORIDE 0.9% 1,000 ML IV PRN (14:22)
[2020-07-05 15:48] LABS: Hematocrit 22.1 VOL% (42.0-52.0); Hemoglobin 6.7 GM/DL (14.0-18.0)
[2020-07-05] MEDS: PHENYLEPHRINE DRIP 40 MG/250 ML PREMIX IV PRN ×3 (16:06→23:20)
[2020-07-05] MEDS: FLUCONAZOLE INJ 400 MG in PREMIX 1 EACH IV SCH (16:12)
[2020-07-05] MEDS ORDERED: POLYETHYLENE GLYCOL POWDER 255 GM BOTTLE PO ONE (18:00)
[2020-07-05] MEDS ORDERED: POLYETHYLENE GLYCOL 3350/ELECTROLYTES 4,000 ML BOTTLE PO ONE (19:30)
[2020-07-05 20:37] LABS: Hematocrit 24.1 VOL% (42.0-52.0); Hemoglobin 7.4 GM/DL (14.0-18.0)
[2020-07-05] MEDS: SIMVASTATIN 20 MG TABLET PO SCH (21:32)
[2020-07-06] MEDS: INSULIN LISPRO 100 UNIT/ML SUBCUT SCH ×5 (00:42→23:56)
[2020-07-06] MEDS: METOCLOPRAMIDE 10 MG/2 ML VIAL IV SCH ×5 (00:51→23:56)
[2020-07-06 01:11] LABS: Hematocrit 26.4 VOL% (42.0-52.0); Hemoglobin 8.5 GM/DL (14.0-18.0)
[2020-07-06] MEDS: ALBUTEROL/IPRATROPIUM 3 ML NEB RESP TX SCH ×4 (01:14→19:26)
[2020-07-06] MEDS: PHENYLEPHRINE DRIP 40 MG/250 ML PREMIX IV PRN ×4 (03:10→18:13)
[2020-07-06 04:27] LABS: ABG Base Excess 0.6 MMOL/L (-2.5-2.5); ABG HCO3 24.8 MMOL/L (20-26); ABG PCO2 37.6 MM HG (35-48); ABG PH 7.437 (7.35-7.45); ABG PO2 100.1 MM HG (80-95); ABG TCO2 25.9 MMOL/L (23-27); Hematocrit 24.8 VOL% (42.0-52.0); Hemoglobin 7.7 GM/DL (14.0-18.0); Immature Granulocytes % 0.5 %; Immature Granulocytes Absolute 0.07 #; Lymphocytes # 2.2 10*3/uL (1.4-4.0); Lymphocytes % 16.7 % (21.2-54.2); Mean Corpuscular Volume 90.2 FL (87-102); Mean Platelet Volume 12.6 FL (9.6-12.0); Monocytes % 3.6 % (1.7-12.7); NRBC # 0.06 10*3/uL; Neutrophils % 79.2 % (38.7-73.9); Red Blood Count 2.75 MC/CUMM (3.8-5.5)
[2020-07-06 04:40] LABS: INR 2.8; PT Patient Result 28.9 SECS (9.8-11.9); Platelet Count 111 T/CUMM (130-400)
[2020-07-06 04:50] LABS: Calcium 8.6 MG/DL (8.5-10.1); Osmolality,Calculated 316.7 MOS/KG (273-304); Potassium 3.8 MMOL/L (3.5-5.1)
[2020-07-06 05:09] LABS: Hypochromasia 2+; Lymphocytes 21 % (20-55); Microcytosis 1+; Ovalocytes Slight; Platelet Estimate Decreased; Segmented Neutrophils 78 % (50-85); Total Cells Counted 100
[2020-07-06] MEDS: methylPREDNISolone SOD SUC 40 MG/1 ML VIAL IV SCH ×3 (07:51→23:36)
[2020-07-06] MEDS ORDERED: LACTATED RINGERS 1,000 ML IV SCH (08:00)
[2020-07-06] MEDS: PANTOPRAZOLE 40 MG VIAL IV SCH ×2 (09:22→21:00)
[2020-07-06] MEDS: DESITIN 4OZ/NYSTATIN 15 GRAM MIXTURE PASTE TOP SCH ×2 (09:22→21:04)
[2020-07-06] MEDS: FUROSEMIDE 40 MG/4 ML VIAL IV SCH ×2 (09:22→21:01)
[2020-07-06] MEDS ORDERED: propofoL 200 MG/20 ML VIAL IV ONE (09:37)
[2020-07-06] MEDS ORDERED: ETOMIDATE 20 MG/10 ML VIAL IV ONE (09:37)
[2020-07-06] MEDS ORDERED: LIDOCAINE 2% 5 ML VIAL ONE (09:37)
[2020-07-06] MEDS ORDERED: PHENYLEPHRINE 1 MG/10 ML SYRINGE IV ONE (09:38)
[2020-07-06] MEDS: MEMANTINE 10 MG TABLET PO SCH ×2 (10:24→21:04)
[2020-07-06] MEDS: carvediloL 3.125 MG TABLET PO SCH ×2 (10:24→21:04)
[2020-07-06] MEDS: ASCORBIC ACID 500 MG TABLET PO SCH ×2 (10:24→21:04)
[2020-07-06] MEDS: ASPIRIN CHEW 81 MG TABLET PO SCH (10:24)
[2020-07-06] MEDS: gemfibroziL 600 MG TABLET PO SCH ×2 (10:24→21:05)
[2020-07-06] MEDS: SERTRALINE 100 MG TABLET PO SCH (10:24)
[2020-07-06] MEDS: MULTIVITAMIN LIQUID (CENTRUM) 60 ML BOTTLE PO SCH (10:25)
[2020-07-06] MEDS: INSULIN GLARGINE 100 UNIT/ML SUBCUT SCH (10:48)
[2020-07-06] MEDS: FLUCONAZOLE INJ 400 MG in PREMIX 1 EACH IV SCH (13:21)
[2020-07-06] MEDS: SIMVASTATIN 20 MG TABLET PO SCH (21:04)
[2020-07-06] MEDS: MIDAZOLAM 100 MG in SODIUM CHLORIDE 0.9% 80 ML IV PRN (23:57)
[2020-07-07] MEDS: ALBUTEROL/IPRATROPIUM 3 ML NEB RESP TX SCH ×4 (00:05→19:40)
[2020-07-07] MEDS: PHENYLEPHRINE DRIP 40 MG/250 ML PREMIX IV PRN ×2 (02:49→09:29)
[2020-07-07 05:15] LABS: ABG Base Excess 0.2 MMOL/L (-2.5-2.5); ABG HCO3 24.6 MMOL/L (20-26); ABG PCO2 44.7 MM HG (35-48); ABG PH 7.368 (7.35-7.45)
[2020-07-07 05:16] LABS: Basophils % 0.1 % (0.0-0.8); Hemoglobin 8.2 GM/DL (14.0-18.0); Immature Granulocytes % 0.5 %; Immature Granulocytes Absolute 0.06 #; Lymphocytes # 1.4 10*3/uL (1.4-4.0); Lymphocytes % 10.8 % (21.2-54.2); Mean Corpuscular HGB Conc 30.4 GM/DL (32-36); Mean Corpuscular Volume 88.8 FL (87-102); Mean Platelet Volume 11.8 FL (9.6-12.0); Monocytes % 3.8 % (1.7-12.7); NRBC # 0.02 10*3/uL; Neutrophils % 84.8 % (38.7-73.9); Platelet Count 117 T/CUMM (130-400); Red Blood Count 3.04 MC/CUMM (3.8-5.5); White Blood Count 12.7 T/CUMM (4-12)
[2020-07-07 05:44] LABS: Calcium 8.4 MG/DL (8.5-10.1); Osmolality,Calculated 329.6 MOS/KG (273-304); Potassium 3.5 MMOL/L (3.5-5.1)
[2020-07-07 05:50] LABS: Hypochromasia 1+
[2020-07-07 05:51] LABS: Microcytosis 1+
[2020-07-07] MEDS: METOCLOPRAMIDE 10 MG/2 ML VIAL IV SCH ×3 (06:40→18:23)
[2020-07-07] MEDS: methylPREDNISolone SOD SUC 40 MG/1 ML VIAL IV SCH ×3 (06:40→23:26)
[2020-07-07] MEDS: INSULIN LISPRO 100 UNIT/ML SUBCUT SCH ×4 (06:40→21:21)
[2020-07-07] MEDS: MULTIVITAMIN LIQUID (CENTRUM) 60 ML BOTTLE PO SCH (08:09)
[2020-07-07] MEDS: POTASSIUM CHLORIDE 20 MEQ/15 ML UDCUP PO PRN ×2 (08:09→10:07)
[2020-07-07] MEDS: PANTOPRAZOLE 40 MG VIAL IV SCH ×2 (08:09→20:50)
[2020-07-07] MEDS: FUROSEMIDE 40 MG/4 ML VIAL IV SCH ×2 (08:10→20:50)
[2020-07-07] MEDS: carvediloL 3.125 MG TABLET PO SCH ×2 (08:10→20:50)
[2020-07-07] MEDS: SERTRALINE 100 MG TABLET PO SCH (08:10)
[2020-07-07] MEDS: ASPIRIN CHEW 81 MG TABLET PO SCH (08:10)
[2020-07-07] MEDS: ASCORBIC ACID 500 MG TABLET PO SCH ×2 (08:10→20:50)
[2020-07-07] MEDS: MEMANTINE 10 MG TABLET PO SCH ×2 (08:10→20:50)
[2020-07-07] MEDS: gemfibroziL 600 MG TABLET PO SCH ×2 (08:10→20:50)
[2020-07-07] MEDS: INSULIN GLARGINE 100 UNIT/ML SUBCUT SCH (08:11)
[2020-07-07] MEDS: DESITIN 4OZ/NYSTATIN 15 GRAM MIXTURE PASTE TOP SCH ×2 (08:11→20:50)
[2020-07-07] MEDS: FLUCONAZOLE INJ 400 MG in PREMIX 1 EACH IV SCH (14:07)
[2020-07-07] MEDS: SIMVASTATIN 20 MG TABLET PO SCH (20:51)
[2020-07-08] MEDS: METOCLOPRAMIDE 10 MG/2 ML VIAL IV SCH ×5 (00:01→23:40)
[2020-07-08] MEDS: ALBUTEROL/IPRATROPIUM 3 ML NEB RESP TX SCH ×4 (00:30→18:13)
[2020-07-08] MEDS: INSULIN LISPRO 100 UNIT/ML SUBCUT SCH ×6 (02:19→22:00)
[2020-07-08] MEDS: PHENYLEPHRINE DRIP 40 MG/250 ML PREMIX IV PRN ×2 (02:20→07:39)
[2020-07-08 04:00] LABS: ABG HCO3 27.1 MMOL/L (20-26); ABG PCO2 41.9 MM HG (35-48); ABG PH 7.426 (7.35-7.45)
[2020-07-08 04:19] LABS: Basophils % 0.1 % (0.0-0.8); Hematocrit 23.2 VOL% (42.0-52.0); Immature Granulocytes % 0.6 %; Immature Granulocytes Absolute 0.06 #; Lymphocytes # 0.6 10*3/uL (1.4-4.0); Lymphocytes % 5.2 % (21.2-54.2); Mean Corpuscular HGB Conc 30.2 GM/DL (32-36); Mean Corpuscular Volume 87.5 FL (87-102); Mean Platelet Volume 12.4 FL (9.6-12.0); Monocytes % 1.7 % (1.7-12.7); Neutrophils % 92.4 % (38.7-73.9); Platelet Count 103 T/CUMM (130-400); Red Blood Count 2.65 MC/CUMM (3.8-5.5); Red Cell Distribution Width 21.5 % (9.3-17.3); White Blood Count 10.9 T/CUMM (4-12)
[2020-07-08 04:22] LABS: Osmolality,Calculated 328.7 MOS/KG (273-304); Potassium 3.1 MMOL/L (3.5-5.1)
[2020-07-08 05:04] LABS: Lymphocytes 2 % (20-55); Platelet Estimate Decreased; Segmented Neutrophils 98 % (50-85); Total Cells Counted 100
[2020-07-08 05:05] LABS: Hypochromasia 1+; Microcytosis 1+
[2020-07-08] MEDS: POTASSIUM CHLORIDE 20 MEQ/15 ML UDCUP PO PRN ×2 (06:03→08:41)
[2020-07-08] MEDS: methylPREDNISolone SOD SUC 40 MG/1 ML VIAL IV SCH ×3 (06:09→22:00)
[2020-07-08] MEDS ORDERED: SODIUM CHLORIDE 0.9% 1,000 ML IV PRN (08:39)
[2020-07-08] MEDS: ASPIRIN CHEW 81 MG TABLET PO SCH (08:41)
[2020-07-08] MEDS: gemfibroziL 600 MG TABLET PO SCH ×2 (08:41→21:58)
[2020-07-08] MEDS: FUROSEMIDE 40 MG/4 ML VIAL IV SCH ×2 (08:42→21:59)
[2020-07-08] MEDS: SERTRALINE 100 MG TABLET PO SCH (08:42)
[2020-07-08] MEDS: MEMANTINE 10 MG TABLET PO SCH ×2 (08:42→21:59)
[2020-07-08] MEDS: ASCORBIC ACID 500 MG TABLET PO SCH ×2 (08:42→21:58)
[2020-07-08] MEDS: carvediloL 3.125 MG TABLET PO SCH ×2 (08:42→21:58)
[2020-07-08] MEDS: PANTOPRAZOLE 40 MG VIAL IV SCH ×2 (08:48→21:59)
[2020-07-08] MEDS: POTASSIUM CHLORIDE 20 MEQ/15 ML UDCUP PER TUBE SCH ×3 (08:50→18:13)
[2020-07-08] MEDS: MULTIVITAMIN LIQUID (CENTRUM) 60 ML BOTTLE PO SCH (08:50)
[2020-07-08] MEDS: INSULIN GLARGINE 100 UNIT/ML SUBCUT SCH (09:41)
[2020-07-08] MEDS: MIDAZOLAM 100 MG in SODIUM CHLORIDE 0.9% 80 ML IV PRN (13:33)
[2020-07-08] MEDS: DESITIN 4OZ/NYSTATIN 15 GRAM MIXTURE PASTE TOP SCH (13:41)
[2020-07-08] MEDS: FLUCONAZOLE INJ 400 MG in PREMIX 1 EACH IV SCH (16:21)
[2020-07-08] MEDS: SIMVASTATIN 20 MG TABLET PO SCH (21:58)
[2020-07-09] MEDS: ALBUTEROL/IPRATROPIUM 3 ML NEB RESP TX SCH ×4 (00:54→19:47)
[2020-07-09] MEDS: DESITIN 4OZ/NYSTATIN 15 GRAM MIXTURE PASTE TOP SCH ×3 (02:08→21:01)
[2020-07-09] MEDS: INSULIN LISPRO 100 UNIT/ML SUBCUT SCH ×6 (02:18→23:45)
[2020-07-09 04:25] LABS: Hemoglobin 7.6 GM/DL (14.0-18.0); Immature Granulocytes % 0.5 %; Immature Granulocytes Absolute 0.05 #; Lymphocytes # 0.5 10*3/uL (1.4-4.0); Mean Corpuscular HGB Conc 29.2 GM/DL (32-36); Mean Corpuscular Volume 92.9 FL (87-102); Mean Platelet Volume 12.8 FL (9.6-12.0); Monocytes % 2.7 % (1.7-12.7); Neutrophils % 91.8 % (38.7-73.9); White Blood Count 9.2 T/CUMM (4-12)
[2020-07-09 04:27] LABS: Platelet Count 83 T/CUMM (130-400)
[2020-07-09 04:51] LABS: Calcium 8.2 MG/DL (8.5-10.1); Osmolality,Calculated 325.7 MOS/KG (273-304); Potassium 3.5 MMOL/L (3.5-5.1)
[2020-07-09 04:53] LABS: Hypochromasia 1+; Lymphocytes 2 % (20-55); Microcytosis 1+; Ovalocytes Slight; Segmented Neutrophils 97 % (50-85); Target Cells Slight; Total Cells Counted 100
[2020-07-09 04:54] LABS: Platelet Estimate Decreased
[2020-07-09] MEDS: METOCLOPRAMIDE 10 MG/2 ML VIAL IV SCH ×3 (05:43→17:26)
[2020-07-09] MEDS: methylPREDNISolone SOD SUC 40 MG/1 ML VIAL IV SCH ×3 (05:43→21:46)
[2020-07-09] MEDS: gemfibroziL 600 MG TABLET PO SCH ×2 (08:07→20:53)
[2020-07-09] MEDS: ASPIRIN CHEW 81 MG TABLET PO SCH (08:07)
[2020-07-09] MEDS: POTASSIUM CHLORIDE 20 MEQ/15 ML UDCUP PO PRN (08:07)
[2020-07-09] MEDS: SERTRALINE 100 MG TABLET PO SCH (08:07)
[2020-07-09] MEDS: ASCORBIC ACID 500 MG TABLET PO SCH ×2 (08:07→20:53)
[2020-07-09] MEDS: MEMANTINE 10 MG TABLET PO SCH ×2 (08:07→20:53)
[2020-07-09] MEDS: carvediloL 3.125 MG TABLET PO SCH ×2 (08:07→20:53)
[2020-07-09] MEDS: INSULIN GLARGINE 100 UNIT/ML SUBCUT SCH (08:08)
[2020-07-09] MEDS: PANTOPRAZOLE 40 MG VIAL IV SCH ×2 (08:14→20:52)
[2020-07-09] MEDS: FUROSEMIDE 40 MG/4 ML VIAL IV SCH ×2 (08:14→20:52)
[2020-07-09] MEDS: MULTIVITAMIN LIQUID (CENTRUM) 60 ML BOTTLE PO SCH (08:32)
[2020-07-09] MEDS: SIMVASTATIN 20 MG TABLET PO SCH (20:52)
[2020-07-09 23:31] LABS: Hematocrit 20.6 VOL% (42.0-52.0)
[2020-07-09 23:32] LABS: Hemoglobin 6.2 GM/DL (14.0-18.0)
[2020-07-09] MEDS ORDERED: SODIUM CHLORIDE 0.9% 1,000 ML IV PRN (23:39)
[2020-07-10] MEDS: INSULIN LISPRO 100 UNIT/ML SUBCUT SCH ×6 (00:38→21:00)
[2020-07-10] MEDS: METOCLOPRAMIDE 10 MG/2 ML VIAL IV SCH ×4 (00:41→17:46)
[2020-07-10] MEDS: ALBUTEROL/IPRATROPIUM 3 ML NEB RESP TX SCH ×4 (01:34→18:23)
[2020-07-10 04:02] LABS: Basophils % 0.1 % (0.0-0.8); Hematocrit 23.3 VOL% (42.0-52.0); Hemoglobin 7.1 GM/DL (14.0-18.0); Immature Granulocytes % 0.5 %; Immature Granulocytes Absolute 0.07 #; Lymphocytes # 0.5 10*3/uL (1.4-4.0); Lymphocytes % 3.5 % (21.2-54.2); Mean Corpuscular HGB Conc 30.5 GM/DL (32-36); Mean Corpuscular Volume 89.6 FL (87-102); Mean Platelet Volume 11.2 FL (9.6-12.0); Monocytes % 2.4 % (1.7-12.7); Neutrophils % 93.5 % (38.7-73.9); Red Cell Distribution Width 19.5 % (9.3-17.3); White Blood Count 13.2 T/CUMM (4-12)
[2020-07-10 04:06] LABS: ABG HCO3 30.8 MMOL/L (20-26); ABG Oxygen Saturation 99.4 % (95-100); ABG PCO2 46.2 MM HG (35-48); ABG PH 7.445 (7.35-7.45)
[2020-07-10 04:10] LABS: Platelet Count 74 T/CUMM (130-400)
[2020-07-10 04:27] LABS: Hypochromasia 1+; Lymphocytes 1 % (20-55); Osmolality,Calculated 324.7 MOS/KG (273-304); Platelet Estimate Decreased; Potassium 3.4 MMOL/L (3.5-5.1); Segmented Neutrophils 98 % (50-85); Total Cells Counted 100
[2020-07-10] MEDS: methylPREDNISolone SOD SUC 40 MG/1 ML VIAL IV SCH ×3 (05:41→22:46)
[2020-07-10] MEDS: POTASSIUM CHLORIDE 20 MEQ/15 ML UDCUP PO PRN ×3 (05:49→15:27)
[2020-07-10] MEDS: carvediloL 3.125 MG TABLET PO SCH ×2 (08:04→21:01)
[2020-07-10] MEDS: MEMANTINE 10 MG TABLET PO SCH ×2 (08:04→21:01)
[2020-07-10] MEDS: INSULIN GLARGINE 100 UNIT/ML SUBCUT SCH (08:04)
[2020-07-10] MEDS: SERTRALINE 100 MG TABLET PO SCH (08:04)
[2020-07-10] MEDS: ASPIRIN CHEW 81 MG TABLET PO SCH (08:04)
[2020-07-10] MEDS: ASCORBIC ACID 500 MG TABLET PO SCH ×2 (08:04→21:01)
[2020-07-10] MEDS: gemfibroziL 600 MG TABLET PO SCH ×2 (08:04→21:01)
[2020-07-10] MEDS: FUROSEMIDE 40 MG/4 ML VIAL IV SCH ×2 (08:05→21:01)
[2020-07-10] MEDS: PANTOPRAZOLE 40 MG VIAL IV SCH ×2 (08:11→21:01)
[2020-07-10] MEDS: MULTIVITAMIN LIQUID (CENTRUM) 60 ML BOTTLE PO SCH (08:33)
[2020-07-10] MEDS: DESITIN 4OZ/NYSTATIN 15 GRAM MIXTURE PASTE TOP SCH ×2 (08:33→21:01)
[2020-07-10] MEDS: SIMVASTATIN 20 MG TABLET PO SCH (21:01)
[2020-07-11] MEDS: INSULIN LISPRO 100 UNIT/ML SUBCUT SCH ×6 (00:52→21:30)
[2020-07-11] MEDS: METOCLOPRAMIDE 10 MG/2 ML VIAL IV SCH ×4 (00:53→18:02)
[2020-07-11] MEDS: ALBUTEROL/IPRATROPIUM 3 ML NEB RESP TX SCH ×4 (01:25→19:13)
[2020-07-11 04:43] LABS: ABG HCO3 34.7 MMOL/L (20-26); ABG Oxygen Saturation 97.7 % (95-100); ABG PCO2 45.1 MM HG (35-48); ABG PH 7.503 (7.35-7.45); ABG PO2 88.1 MM HG (80-95); ABG TCO2 32.7 MMOL/L (23-27)
[2020-07-11 05:02] LABS: Basophils % 0.1 % (0.0-0.8); Hematocrit 26.3 VOL% (42.0-52.0); Immature Granulocytes % 0.6 %; Immature Granulocytes Absolute 0.09 #; Lymphocytes # 0.4 10*3/uL (1.4-4.0); Lymphocytes % 2.8 % (21.2-54.2); Mean Corpuscular HGB Conc 32.7 GM/DL (32-36); Mean Corpuscular Volume 86.5 FL (87-102); Mean Platelet Volume 12.4 FL (9.6-12.0); Monocytes % 2.4 % (1.7-12.7); Neutrophils % 94.1 % (38.7-73.9); Red Blood Count 3.04 MC/CUMM (3.8-5.5); Red Cell Distribution Width 19.1 % (9.3-17.3); White Blood Count 14.8 T/CUMM (4-12)
[2020-07-11 05:08] LABS: Hemoglobin 8.6 GM/DL (14.0-18.0); Platelet Count 69 T/CUMM (130-400)
[2020-07-11 05:12] LABS: Calcium 8.5 MG/DL (8.5-10.1); Osmolality,Calculated 319.7 MOS/KG (273-304); Potassium 3.1 MMOL/L (3.5-5.1)
[2020-07-11 05:22] LABS: Hypochromasia 1+; Lymphocytes 1 % (20-55); Microcytosis 1+; Platelet Estimate Decreased; Segmented Neutrophils 97 % (50-85); Total Cells Counted 100
[2020-07-11] MEDS: methylPREDNISolone SOD SUC 40 MG/1 ML VIAL IV SCH ×3 (06:09→21:41)
[2020-07-11] MEDS: POTASSIUM CHLORIDE 20 MEQ/15 ML UDCUP PO PRN ×4 (06:34→13:33)
[2020-07-11] MEDS: MIDAZOLAM 100 MG in SODIUM CHLORIDE 0.9% 80 ML IV PRN (07:15)
[2020-07-11] MEDS: MULTIVITAMIN LIQUID (CENTRUM) 60 ML BOTTLE PO SCH (09:48)
[2020-07-11] MEDS: ASPIRIN CHEW 81 MG TABLET PO SCH (09:48)
[2020-07-11] MEDS: carvediloL 3.125 MG TABLET PO SCH ×2 (09:48→21:30)
[2020-07-11] MEDS: MEMANTINE 10 MG TABLET PO SCH ×2 (09:49→21:30)
[2020-07-11] MEDS: FUROSEMIDE 40 MG/4 ML VIAL IV SCH ×2 (09:49→21:32)
[2020-07-11] MEDS: ASCORBIC ACID 500 MG TABLET PO SCH ×2 (09:49→21:29)
[2020-07-11] MEDS: INSULIN GLARGINE 100 UNIT/ML SUBCUT SCH (09:49)
[2020-07-11] MEDS: SERTRALINE 100 MG TABLET PO SCH (09:49)
[2020-07-11] MEDS: PANTOPRAZOLE 40 MG VIAL IV SCH ×2 (09:49→21:31)
[2020-07-11] MEDS: gemfibroziL 600 MG TABLET PO SCH ×2 (09:49→21:28)
[2020-07-11] MEDS: DESITIN 4OZ/NYSTATIN 15 GRAM MIXTURE PASTE TOP SCH ×2 (09:49→21:33)
[2020-07-11] MEDS: cefTRIAXone 1,000 MG in SYRINGE 1 EACH IV SCH (11:00)
[2020-07-11 11:20] LABS: Albumin 2.3 G/DL (3.4-5.0); Bilirubin,Direct 2.05 MG/DL (0.0-0.20); Bilirubin,Indirect 0.3 MG/DL (0.0-1.0); Bilirubin,Total 2.3 MG/DL (0.2-1.0); Total Protein 4.5 G/DL (6.4-8.3)
[2020-07-11] MEDS ORDERED: ALBUMIN 25% 25 GM in PREMIX 1 EACH IV ONE ×2 (11:30→21:00)
[2020-07-11] MEDS: SIMVASTATIN 20 MG TABLET PO SCH (21:31)
[2020-07-12] MEDS: INSULIN LISPRO 100 UNIT/ML SUBCUT SCH ×6 (00:09→20:50)
[2020-07-12] MEDS: METOCLOPRAMIDE 10 MG/2 ML VIAL IV SCH ×4 (00:09→17:52)
[2020-07-12] MEDS: ALBUTEROL/IPRATROPIUM 3 ML NEB RESP TX SCH ×4 (00:31→19:42)
[2020-07-12] MEDS: methylPREDNISolone SOD SUC 40 MG/1 ML VIAL IV SCH ×3 (05:43→22:19)
[2020-07-12] MEDS: carvediloL 3.125 MG TABLET PO SCH ×2 (09:00→20:49)
[2020-07-12] MEDS: PANTOPRAZOLE 40 MG VIAL IV SCH ×2 (09:44→20:50)
[2020-07-12] MEDS: ASCORBIC ACID 500 MG TABLET PO SCH ×2 (09:44→20:49)
[2020-07-12] MEDS: FUROSEMIDE 40 MG/4 ML VIAL IV SCH (09:44)
[2020-07-12] MEDS: cefTRIAXone 1,000 MG in SYRINGE 1 EACH IV SCH (09:44)
[2020-07-12] MEDS: gemfibroziL 600 MG TABLET PO SCH ×2 (09:45→20:49)
[2020-07-12] MEDS: ASPIRIN CHEW 81 MG TABLET PO SCH (09:45)
[2020-07-12] MEDS: SERTRALINE 100 MG TABLET PO SCH (09:45)
[2020-07-12] MEDS: MEMANTINE 10 MG TABLET PO SCH ×2 (09:45→20:49)
[2020-07-12] MEDS: DESITIN 4OZ/NYSTATIN 15 GRAM MIXTURE PASTE TOP SCH ×2 (09:46→20:50)
[2020-07-12] MEDS: MULTIVITAMIN LIQUID (CENTRUM) 60 ML BOTTLE PO SCH (09:46)
[2020-07-12] MEDS: INSULIN GLARGINE 100 UNIT/ML SUBCUT SCH (09:46)
[2020-07-12 10:20] VITALS: BP 107/31
[2020-07-12 10:58] LABS: Hematocrit 24.7 VOL% (42.0-52.0); Hemoglobin 7.7 GM/DL (14.0-18.0); Immature Granulocytes % 0.1 %; Immature Granulocytes Absolute 0.01 #; Lymphocytes # 0.3 10*3/uL (1.4-4.0); Lymphocytes % 4.8 % (21.2-54.2); Mean Corpuscular HGB Conc 31.2 GM/DL (32-36); Mean Corpuscular Volume 89.8 FL (87-102); Mean Platelet Volume 12.1 FL (9.6-12.0); Monocytes % 2.1 % (1.7-12.7); Red Blood Count 2.75 MC/CUMM (3.8-5.5); White Blood Count 6.8 T/CUMM (4-12)
[2020-07-12 11:10] LABS: Platelet Count 62 T/CUMM (130-400)
[2020-07-12 11:14] LABS: INR 1.5; PT Patient Result 16.2 SECS (9.8-11.9)
[2020-07-12 11:29] LABS: Calcium 8.5 MG/DL (8.5-10.1); Osmolality,Calculated 325.8 MOS/KG (273-304); Potassium 3.6 MMOL/L (3.5-5.1)
[2020-07-12 11:43] LABS: Band Neutrophils 2 % (0-10); Hypochromasia 2+; Lymphocytes 6 % (20-55); Microcytosis 1+; Ovalocytes Slight; Platelet Estimate Decreased; Segmented Neutrophils 90 % (50-85); Total Cells Counted 100
[2020-07-12] MEDS: POTASSIUM CHLORIDE 20 MEQ/15 ML UDCUP PO PRN ×2 (18:05→20:51)
[2020-07-12] MEDS: SIMVASTATIN 20 MG TABLET PO SCH (20:49)
[2020-07-12] MEDS: MIDAZOLAM 100 MG in SODIUM CHLORIDE 0.9% 80 ML IV PRN (21:50)
[2020-07-13] MEDS: INSULIN LISPRO 100 UNIT/ML SUBCUT SCH ×4 (00:01→12:18)
[2020-07-13] MEDS: METOCLOPRAMIDE 10 MG/2 ML VIAL IV SCH ×3 (00:03→12:52)
[2020-07-13] MEDS: ALBUTEROL/IPRATROPIUM 3 ML NEB RESP TX SCH ×3 (00:20→13:30)
[2020-07-13 05:26] LABS: ABG Base Excess 9.8 MMOL/L (-2.5-2.5); ABG HCO3 33.8 MMOL/L (20-26); ABG Oxygen Saturation 92.8 % (95-100); ABG PCO2 43.8 MM HG (35-48); ABG PH 7.505 (7.35-7.45); ABG PO2 66.1 MM HG (80-95); ABG TCO2 35.1 MMOL/L (23-27)
[2020-07-13 05:31] LABS: Basophils % 0.1 % (0.0-0.8); Hematocrit 22.8 VOL% (42.0-52.0); Hemoglobin 7.1 GM/DL (14.0-18.0); Immature Granulocytes % 0.5 %; Immature Granulocytes Absolute 0.04 #; Lymphocytes # 0.5 10*3/uL (1.4-4.0); Lymphocytes % 6.1 % (21.2-54.2); Mean Corpuscular HGB Conc 31.1 GM/DL (32-36); Mean Corpuscular Volume 90.5 FL (87-102); Mean Platelet Volume 12.4 FL (9.6-12.0); Monocytes % 2.4 % (1.7-12.7); Neutrophils % 90.9 % (38.7-73.9); Red Blood Count 2.52 MC/CUMM (3.8-5.5); Red Cell Distribution Width 20.4 % (9.3-17.3); White Blood Count 8.1 T/CUMM (4-12)
[2020-07-13 05:44] LABS: Platelet Count 61 T/CUMM (130-400)
[2020-07-13 05:59] LABS: Band Neutrophils 1 % (0-10); Hypochromasia 1+; Lymphocytes 9 % (20-55); Microcytosis 1+; Ovalocytes Slight; Platelet Estimate Decreased; Segmented Neutrophils 89 % (50-85); Total Cells Counted 100
[2020-07-13 06:07] LABS: Calcium 8.4 MG/DL (8.5-10.1); Potassium 3.7 MMOL/L (3.5-5.1)
[2020-07-13] MEDS: methylPREDNISolone SOD SUC 40 MG/1 ML VIAL IV SCH (06:13)
[2020-07-13] MEDS: MEMANTINE 10 MG TABLET PO SCH (08:47)
[2020-07-13] MEDS: PANTOPRAZOLE 40 MG VIAL IV SCH (08:47)
[2020-07-13] MEDS: ASPIRIN CHEW 81 MG TABLET PO SCH (08:47)
[2020-07-13] MEDS: cefTRIAXone 1,000 MG in SYRINGE 1 EACH IV SCH (08:47)
[2020-07-13] MEDS: ASCORBIC ACID 500 MG TABLET PO SCH (08:48)
[2020-07-13] MEDS: DESITIN 4OZ/NYSTATIN 15 GRAM MIXTURE PASTE TOP SCH (08:48)
[2020-07-13] MEDS: gemfibroziL 600 MG TABLET PO SCH (08:48)
[2020-07-13] MEDS: INSULIN GLARGINE 100 UNIT/ML SUBCUT SCH (08:48)
[2020-07-13] MEDS: MULTIVITAMIN LIQUID (CENTRUM) 60 ML BOTTLE PO SCH (08:48)
[2020-07-13] MEDS: SERTRALINE 100 MG TABLET PO SCH (08:48)
[2020-07-13] MEDS: carvediloL 3.125 MG TABLET PO SCH (08:49)
[2020-07-13] MEDS ORDERED: MORPHINE 4 MG/1 ML VIAL IV PRN (14:26)
[2020-07-13] MEDS ORDERED: LORazepam 2 MG/1 ML VIAL IV PRN (14:26)
== END 2020-07-13 15:30 | disposition expired | DRG 207 ==
LOC: EDBD → EDUNIT# → N.ED 02:01 → SUATTDRO 04:33 → N.EDINP 04:33 → N.TELEN 14:11 → N.ICU 06-25 06:37
PROVIDERS: ADMIT Internal Medicine; ATTEND Internal Medicine